=== PATIENT | male | born 1965 | race Caucasian/White ===

== ENCOUNTER 2017-07-10 15:09 | Emergency (ER) | payer OTHER ==
[~2017-07-10] VITALS: Ht 167.6 cm; Wt 68.0 kg
[~2017-07-10 15:09] MED LIST: BACT800T5 PO; IBUP-232 PO
[2017-07-10 15:28] VITALS: BP 110/74; PULSE 80; RESP 16; TEMP 98.4; O2SAT 97
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
[2017-07-10 20:00] VITALS: BP 116/76; PULSE 72; RESP 18; O2SAT 97
[2017-07-11] MEDS ORDERED: IBUPROFEN 800 MG TAB PO ONE (01:30)
[2017-07-11 03:42] VITALS: BP 106/72; PULSE 66; RESP 16; O2SAT 96
== END 2017-07-11 06:34 | disposition home or self-care (01) ==
LOC: NEPD 15:09
DX: F10.920 Alcohol use, unspecified with intoxication, uncomplicated (principal)
CPT/HCPCS: 99281

== ENCOUNTER 2017-10-29 06:56 | Emergency (ER) | payer SELFPAY ==
[~2017-10-29] VITALS: Ht 167.6 cm; Wt 68.0 kg
[2017-10-29 07:40] VITALS: BP 127/82; PULSE 92; RESP 18; TEMP 97.5; O2SAT 94
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
--- NOTE | 2017-10-29 08:43 | RADRPT ---
EXAM DATE/TIME: 10/29/2017 08:21 [facility] COMPARISON: No previous studies available for comparison. INDICATIONS : Fall, right knee pain. MEDICAL HISTORY : None. SURGICAL HISTORY : None. ENCOUNTER: Initial ACUITY: 1 day PAIN SCORE: 10/10 LOCATION: Right knee FINDINGS: Four view examination of the right knee demonstrates no evidence of fracture or dislocation. Bony mi neralization is under mineralized. Mild osteoarthritis. Large joint effusion. Slight depression later al tibial plateau. The articular surfaces are intact. The suprapatellar soft tissues have a normal configuration. CONCLUSION: 1. Slight depression lateral tibial plateau likely old fracture. 2. Large joint effusion without displaced fracture. 3. Osteopenia Vinny Tran MD on October 29, 2017 at 8:39 Board Certified Radiologist. This report was verified electronically.
[2017-10-29 09:00] VITALS: BP 132/77; PULSE 86; RESP 16; O2SAT 98
[2017-10-29 09:10] VITALS: RESP 16
[2017-10-29] MEDS ORDERED: TRAM50TA PO (09:38)
== END 2017-10-29 11:00 | disposition home or self-care (01) ==
LOC: PHED 06:56
DX: M25.461 Effusion, right knee (principal); S89.81XA Other specified injuries of right lower leg, initial encounter; F17.200 Nicotine dependence, unspecified, uncomplicated; W10.9XXA Fall (on) (from) unspecified stairs and steps, initial encounter
CPT/HCPCS: 73564; 99283; L1830

== ENCOUNTER 2017-11-08 19:44 | Emergency (ER) | payer OTHER ==
[2017-11-08 20:58] LABS: ALBUMIN 3.4 GM/DL (3.4-5.0); ANION GAP 10 MEQ/L (5-15); AST (GOT) 295 U/L (15-37); BICARBONATE 27.1 MEQ/L (21.0-32.0); BLOOD UREA NITROGEN 8 MG/DL (7-18); CALCIUM 8.8 MG/DL (8.5-10.1); CHLORIDE 97 MEQ/L (98-107); CREATININE 0.75 MG/DL (0.60-1.30); GLOMERULAR FILTRATION RATE 109 ML/MIN (>89); GLUCOSE,RANDOM 88 MG/DL (74-106); POTASSIUM 3.5 MEQ/L (3.5-5.1); SODIUM (NA) 134 MEQ/L (136-145)
[2017-11-08 20:59] LABS: ALT (GPT) 354 U/L (12-78)
[2017-11-08 21:01] LABS: ALKALINE PHOSPHATASE 125 U/L (45-117); TOTAL BILIRUBIN ADULT 0.5 MG/DL (0.2-1.0)
[2017-11-08 21:12] LABS: ALCOHOL 298 MG/DL (0-5)
[2017-11-08 21:21] LABS: AUTOMATED NEUTROPHIL # 3.7 TH/MM3 (1.8-7.7); BASOPHIL # 0.4 TH/MM3 (0-0.2); BASOPHIL % 4.8 % (0.0-2.0); EOSINOPHIL # 0.3 TH/MM3 (0-0.4); HEMATOCRIT 41.7 % (39.0-51.0); HEMO FLAGS AUTO DIFF; HEMOGLOBIN 14.1 GM/DL (13.0-17.0); LYMPH % 29.6 % (9.0-44.0); LYMPHOCYTE # 2.2 TH/MM3 (1.0-4.8); MEAN CELL VOLUME 103.5 FL (80.0-100.0); MEAN CORPUSCULAR HGB CONC 33.8 % (32.0-36.0); MEAN PLATELET VOLUME 7.9 FL (7.0-11.0); MONO % 12.7 % (0.0-8.0); NEUT % 48.9 % (16.0-70.0); PLATELET COUNT 247 TH/MM3 (150-450); RED BLOOD COUNT 4.03 MIL/MM3 (4.50-5.90); RED CELL DISTRIBUTION WIDTH 14.2 % (11.6-17.2); WHITE BLOOD COUNT 7.6 TH/MM3 (4.0-11.0)
[2017-11-08 21:53] LABS: SCAN/DIFF AUTO DIFF CONFIRMED
== END 2017-11-09 03:00 ==
LOC: NEDAMB 11-09 03:00
DX: F10.129 Alcohol abuse with intoxication, unspecified (principal); F17.200 Nicotine dependence, unspecified, uncomplicated
CPT/HCPCS: 80053; 80307; 85025; 99283

== ENCOUNTER 2018-02-05 13:45 | Inpatient (IN) | payer SELFPAY ==
[~2018-02-05 13:45] MED LIST changes: -BACT800T5 PO; -IBUP-232 PO; +TRAM50TA PO
[2018-02-05 13:50] VITALS: BP 157/94; PULSE 71; RESP 20
[2018-02-05] MEDS ORDERED: ONDANSETRON HCL 4 MG/2 ML VIAL IV PUSH ONE (14:00)
[2018-02-05] MEDS ORDERED: HYDROmorphone HCL PF 2 MG/ML VIAL IVS ONE ×2 (14:00→16:45)
[2018-02-05 14:05] VITALS: BP 157/94; PULSE 114; RESP 18; O2SAT 98
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
[2018-02-05 16:53] LABS: AUTOMATED NEUTROPHIL # 6.2 TH/MM3 (1.8-7.7); BASOPHIL % 0.4 % (0.0-2.0); EOSINOPHIL % 0.1 % (0.0-4.0); HEMATOCRIT 37.8 % (39.0-51.0); HEMOGLOBIN 13.3 GM/DL (13.0-17.0); LYMPH % 11.1 % (9.0-44.0); LYMPHOCYTE # 0.9 TH/MM3 (1.0-4.8); MEAN CELL VOLUME 104.1 FL (80.0-100.0); MEAN CORPUSCULAR HEMOGLOBIN 36.7 PG (27.0-34.0); MEAN CORPUSCULAR HGB CONC 35.3 % (32.0-36.0); MEAN PLATELET VOLUME 8.7 FL (7.0-11.0); MONO % 11.8 % (0.0-8.0); NEUT % 76.6 % (16.0-70.0); PLATELET COUNT 134 TH/MM3 (150-450); RED BLOOD COUNT 3.63 MIL/MM3 (4.50-5.90); RED CELL DISTRIBUTION WIDTH 13.9 % (11.6-17.2); WHITE BLOOD COUNT 8.1 TH/MM3 (4.0-11.0)
[2018-02-05 16:54] VITALS: RESP 18; O2SAT 95
[2018-02-05 16:55] VITALS: BP 118/75; PULSE 107; RESP 18; O2SAT 95
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
[2018-02-05 17:02] LABS: INTERNATIONAL NORMALIZED RATIO 1.2 RATIO; PROTHROMBIN TIME - PATIENT 12.4 SEC (9.8-11.6)
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
[2018-02-05 17:23] LABS: ALBUMIN 3.4 GM/DL (3.4-5.0); AST (GOT) 245 U/L (15-37); BLOOD UREA NITROGEN 7 MG/DL (7-18); CALCIUM 8.4 MG/DL (8.5-10.1); CHLORIDE 94 MEQ/L (98-107); GLOMERULAR FILTRATION RATE 118 ML/MIN (>89); GLUCOSE,RANDOM 103 MG/DL (74-106); SODIUM (NA) 131 MEQ/L (136-145)
[2018-02-05 17:25] LABS: ALT (GPT) 226 U/L (12-78)
[2018-02-05 17:27] LABS: ALKALINE PHOSPHATASE 123 U/L (45-117); TOTAL BILIRUBIN ADULT 1.7 MG/DL (0.2-1.0); TOTAL PROTEIN 7.9 GM/DL (6.4-8.2)
[2018-02-05] MEDS ORDERED: LORazepam 2 MG/ML VIAL IV PUSH PRN ×3 (17:45)
[2018-02-05] MEDS ORDERED: FLUMAZENIL 0.5 MG/5 ML VIAL IV PUSH PRN (17:45)
[2018-02-05] MEDS ORDERED: LORazepam 2 MG TAB PO PRN (17:45)
[2018-02-05] MEDS ORDERED: LORazepam 1 MG TAB PO PRN (17:45)
[2018-02-05] MEDS ORDERED: ONDANSETRON HCL 4 MG/2 ML VIAL IVP PRN (17:45)
[2018-02-05] MEDS ORDERED: ACETAMINOPHEN 325 MG TAB PO PRN (17:45)
[2018-02-05] MEDS ORDERED: NALOXONE HCL 0.4 MG/ML AMP IV PUSH PRN ×2 (17:45→18:00)
[2018-02-05] MEDS ORDERED: BISACODYL 10 MG SUPP RECTAL PRN (17:45)
[2018-02-05] MEDS ORDERED: ACETAMINOPHEN/HYDROcodone 325 MG/5 MG TAB PO PRN (18:00)
[2018-02-05] MEDS: ACETAMINOPHEN/HYDROcodone 325 MG/10 MG TAB PO PRN (20:13)
[2018-02-05 20:24] VITALS: BP 133/74; PULSE 93; RESP 18; TEMP 96.6; O2SAT 96
[2018-02-05 21:00] VITALS: BP 125/73; PULSE 112; RESP 19; TEMP 97.9; O2SAT 92
[2018-02-05] MEDS ORDERED: MULTIVITAMIN INJ 10 ML, THIAMINE INJ 100 MG, FOLIC ACID INJ 1 MG in SODIUM CHLORID 0.9%... IV ONE (21:00)
[2018-02-05] MEDS: MAGNESIUM HYDROXIDE SUSP 30 ML CUP PO PRN (22:01)
[2018-02-05] MEDS: MORPHINE SULFATE 4 MG/ML INJ IV PUSH PRN (22:01)
[2018-02-05] MEDS: SODIUM CHLORIDE 0.9% FLUSH 10 ML FLUSH IV FLUSH SCH (22:02)
[2018-02-05] MEDS: DOCUSATE SODIUM 50 MG/SENNA 8.6 MG TAB PO SCH (22:02)
[2018-02-05] MEDS ORDERED: POVIDONE IODINE 5% (ANTISEPSIS KIT) 4 APPLICATIONS EACH NARE PRN (22:30)
[2018-02-05] MEDS ORDERED: SODIUM CHLORID 0.9% 500 ML IV PRN (22:30)
[2018-02-05] MEDS ORDERED: LACTATED RINGER'S 1000 ML IV PRN (22:30)
[2018-02-05] MEDS: SODIUM CHLOR 0.9% 1000 ML INJ 1,000 ML IV SCH (22:30)
[2018-02-05] MEDS ORDERED: CHLORHEXIDINE GLUCONATE 2 % 1 PACK (2 CLOTHS) TOPICAL PRN (22:30)
[2018-02-06 00:15] VITALS: BP 135/76; PULSE 101; RESP 18; TEMP 99.1; O2SAT 97
[2018-02-06] MEDS: ACETAMINOPHEN/HYDROcodone 325 MG/10 MG TAB PO PRN ×3 (00:24→14:10)
[2018-02-06] MEDS: MORPHINE SULFATE 4 MG/ML INJ IV PUSH PRN ×3 (01:30→19:11)
[2018-02-06 01:54] LABS: AUTOMATED NEUTROPHIL # 5.7 TH/MM3 (1.8-7.7); BASOPHIL # 0.1 TH/MM3 (0-0.2); BASOPHIL % 1.4 % (0.0-2.0); EOSINOPHIL # 0.1 TH/MM3 (0-0.4); EOSINOPHIL % 0.8 % (0.0-4.0); HEMATOCRIT 33.8 % (39.0-51.0); LYMPH % 13.2 % (9.0-44.0); MEAN CELL VOLUME 103.9 FL (80.0-100.0); MEAN CORPUSCULAR HEMOGLOBIN 36.9 PG (27.0-34.0); MEAN CORPUSCULAR HGB CONC 35.5 % (32.0-36.0); MEAN PLATELET VOLUME 8.9 FL (7.0-11.0); MONO % 11.5 % (0.0-8.0); MONOCYTE # 0.9 TH/MM3 (0-0.9); NEUT % 73.1 % (16.0-70.0); PLATELET COUNT 114 TH/MM3 (150-450); RED BLOOD COUNT 3.25 MIL/MM3 (4.50-5.90); RED CELL DISTRIBUTION WIDTH 14.5 % (11.6-17.2); WHITE BLOOD COUNT 7.8 TH/MM3 (4.0-11.0)
[2018-02-06 02:10] LABS: ALBUMIN 3.3 GM/DL (3.4-5.0); ALT (GPT) 191 U/L (12-78); AST (GOT) 183 U/L (15-37); BICARBONATE 33.1 MEQ/L (21.0-32.0); BLOOD UREA NITROGEN 11 MG/DL (7-18); CALCIUM 8.4 MG/DL (8.5-10.1); CHLORIDE 93 MEQ/L (98-107); GLUCOSE,RANDOM 99 MG/DL (74-106); SODIUM (NA) 132 MEQ/L (136-145)
[2018-02-06 02:13] LABS: ALKALINE PHOSPHATASE 99 U/L (45-117); CREATININE 0.78 MG/DL (0.60-1.30); GLOMERULAR FILTRATION RATE 104 ML/MIN (>89); TOTAL BILIRUBIN ADULT 2.4 MG/DL (0.2-1.0); TOTAL PROTEIN 7.2 GM/DL (6.4-8.2)
[2018-02-06 04:30] VITALS: BP 115/68; PULSE 106; RESP 18; TEMP 98.5; O2SAT 95
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
[2018-02-06] MEDS ORDERED: WALKER/ADULT/FO1 MIS (06:43)
[2018-02-06] MEDS ORDERED: XARE10TA PO (06:43)
[2018-02-06] MEDS ORDERED: HYDR-3583 PO (06:43)
[2018-02-06 08:00] VITALS: BP 120/69; PULSE 93; RESP 16; TEMP 98.4; O2SAT 95
[2018-02-06] MEDS ORDERED: VANCOMYCIN HCL 1000 MG VIAL ONE (08:00)
[2018-02-06] MEDS ORDERED: ceFAZolin INJ 1,000 MG VIAL ONE (08:00)
[2018-02-06] MEDS ORDERED: GENTAMICIN SULFATE 80 MG/2 ML VIAL ONE (08:00)
[2018-02-06] MEDS ORDERED: SODIUM CHLOR 0.9% 250 ML INJ 250 ML ONE (08:01)
[2018-02-06] MEDS ORDERED: BUPIVACAINE/EPINEPHRINE 0.25% 50 ML VIAL ONE (08:01)
[2018-02-06] MEDS: SODIUM CHLOR 0.9% 1000 ML INJ 1,000 ML IV SCH ×2 (08:36→17:42)
[2018-02-06] MEDS: SODIUM CHLORIDE 0.9% FLUSH 10 ML FLUSH IV FLUSH SCH ×2 (09:00→21:58)
[2018-02-06] MEDS: DOCUSATE SODIUM 50 MG/SENNA 8.6 MG TAB PO SCH ×2 (09:00→21:58)
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
--- NOTE | 2018-02-06 09:42 | PD.OP ---
cc: Lauri Mensah MD Operative Report Date of Surgery: Feb 06, 2018 Preoperative Diagnosis: Left hip intertrochanteric fracture Postoperative Diagnosis: Procedure: Left hip reduction and intramedullary nail fixation Anesthesia: General Surgeon: Lauri Mensah Grants Administrator(s): UMM Hinojosa PA-C The surgical procedure was assisted by my physician psychiatric assistant. My P.A. presence was necessary throughout this case for the manipulation and positioning of the surgical extremity. My P.A. was assisting me throughout the duration of this procedure. The skill set of a physician psychiatric assistant was medically necessary to complete this procedure. During the surgical case the surgical dressing maker was working at the back table and the physician psychiatric assistant was directly assisting me. Operation and Findings: Implants used: [11]mm 130 Biomet short troch nail Plan of activity: Weight-bear as tolerated Patient was seen and evaluated preoperatively. The patient has significant hip pain from intertrochanteric hip fracture. The risk and benefits of surgery were discussed in depth with the patient to include bleeding infection nonunion malunion and need for hip replacement painful hardware as well as medical competitions including but not stroke heart attack and . Informed consent was obtained. Operative site was marked. Patient was brought to the operating room and placed on fracture table. IV sedation was administered by anesthesiologist. Timeout procedure was performed. Hip and leg were prepped with alcohol followed by DuraPrep and draped in the usual sterile fashion. IV antibiotics were given prior to incision. Procedure began with reduction of fracture. Traction was applied. The leg was manipulated to achieve reduction. Excellent reduction was achieved. Fluoroscopy was used to confirm reduction. A three inch incision was made proximal to the trochanter. Subcutaneous tissue was dissected bluntly. Guidepin was placed at the tip of the trochanter and advanced into the femoral canal. Fluoroscopy confirmed appropriate guidepin placement. A opening reamer was placed over the guidepin. The nail was attached to the insertion handle. Nail was now placed through the tip of the trochanter into the femoral canal. Fluoroscopy confirmed appropriate nail placement. A second incision was made over the lateral thigh. Cannulas were placed through the insertion handle down to the femur. Guidepin was now placed through the femoral nail into the center of the femoral head. Fluoroscopy confirmed appropriate guidepin placement. Screw length was measured. Cannulated drill was placed over the guidepin. Appropriate length lag screw was now placed. Traction was released and compression was applied. The set screw was now tightened in dynamic mode. Using the insertion handle as a guide a distal interlocking screw was drilled and placed. Final fluoroscopy revealed well aligned fracture with well-placed hardware. Incision was closed with 3-0 Vicryl and sherron. Sterile dressings were applied. Patient was awakened and transferred to recovery room. Lauri Mensah MD Feb 06, 2018 09:42
[2018-02-06] MEDS ORDERED: ERGOCALCIFEROL (VIT D2) 50,000 UNIT CAP PO ONE (09:45)
[2018-02-06] MEDS ORDERED: DO NOT ADM ANY ANTICOAGULANT DRUGS PRN (10:11)
[2018-02-06] MEDS ORDERED: *MEPERIDINE 25 MG INJ VIAL PERIprocedural Use ONLY ONE (10:19)
[2018-02-06] MEDS ORDERED: MIDAZOLAM HCL 2 MG/2 ML VIAL ONE (10:24)
[2018-02-06] MEDS ORDERED: *morphine SULFATE 8 MG/ML PERIprocedure ONLY ONE (10:50)
[2018-02-06] MEDS ORDERED: *diphenhydrAMINE HCL 50 MG/ML VIAL PERIprocedural Use ONLY ONE (10:58)
[2018-02-06] MEDS ORDERED: diphenhydrAMINE HCL 25 MG CAP PO PRN (11:30)
--- NOTE | 2018-02-06 11:52 | RADRPT ---
EXAM DATE/TIME: 02/06/2018 09:35 [facility] COMPARISON: No previous studies available for comparison. INDICATIONS : Left troch nail. MEDICAL HISTORY : Gastroparesis. Pneumonia. Liver disease. ETOH use. SURGICAL HISTORY : Appendectomy.Inguinal hernia repair. Cervical spine surgery with plate. ENCOUNTER: Subsequent ACUITY: 2 days PAIN SCORE: Non-responsive. LOCATION: Left Hip. FINDINGS: Intertrochanteric nail in good position. CONCLUSION: Anatomic alignment. Jeremy Wells MD FACR on February 06, 2018 at 11:49 Board Certified Radiologist. This report was verified electronically.
[2018-02-06 12:00] VITALS: BP 114/72; PULSE 96; RESP 18; TEMP 98.2; O2SAT 97
[2018-02-06] MEDS ORDERED: ROCURONIUM INJ 50 MG/5 ML SYRINGE IV PUSH ONE (12:00)
[2018-02-06] MEDS ORDERED: PROPOFOL 200 MG/20 ML AMP IV ONE (12:00)
[2018-02-06] MEDS ORDERED: DEXAMETHASONE SOD PHOS 4 MG/ML VIAL IV ONE (12:00)
[2018-02-06] MEDS ORDERED: ONDANSETRON HCL 4 MG/2 ML VIAL IV ONE (12:00)
[2018-02-06] MEDS ORDERED: GLYCOPYRROLATE 1 MG/5 ML SYRINGE IV PUSH ONE (12:00)
[2018-02-06] MEDS ORDERED: LIDOCAINE HCL 1% PF 5 ML SYRINGE OTHER ONE (12:00)
[2018-02-06] MEDS ORDERED: NEOSTIGMINE 5 MG/5 ML SYRINGE IV PUSH ONE (12:00)
[2018-02-06] MEDS: LORazepam 2 MG/ML VIAL IV PUSH PRN ×2 (14:10→19:12)
[2018-02-06] MEDS: CALCIUM/VITAMIN D 250 MG/125 U TAB PO SCH ×2 (14:10→18:24)
--- NOTE | 2018-02-06 15:21 | OTSOAPIP ---
TIME SESSION COMPLETED: 1300 TREATMENT TIME: 0 MINS. CHART REVIEWED. ATTEMPTED TO SEE FOR OT ASSESSMENT, HOWEVER PATIENT OFF FLOOR FOR SURGERY. WILL FOLLOW NEXT DAY. Therapist: MANUEL UGARTE OT/Azael Signature on file
--- NOTE | 2018-02-06 15:33 | RADRPT ---
EXAM DATE/TIME: 02/06/2018 13:13 [facility] COMPARISON: No previous studies available for comparison. INDICATIONS : Elevated bilirubin. MEDICAL HISTORY : Hypertension. Gastroesophageal reflux disease. Gastroparesis. ETOH. SURGICAL HISTORY : Appendectomy. Cervical fusion. Left inguinal hernia repair. ENCOUNTER: Initial ACUITY: 1 day PAIN SCORE: 0/10 LOCATION: Right upper quadrant MEASUREMENTS: LIVER: 15.3 cm length COMMON DUCT: 2 mm RIGHT KIDNEY: 10.1 x 4.8 x 5.2 cm FINDINGS: LIVER: Mildly increased echogenicity which may reflect steatosis. No focal mass or biliary ductal dilatation . COMMON DUCT: No intraluminal mass or stone visualized. GALLBLADDER: Contains no stones, demonstrates no wall thickening or pericholecystic fluid. PANCREAS: Poorly visualized RIGHT KIDNEY: No evidence of hydronephrosis, stone, or mass. CONCLUSION: Echogenic hepatic parenchyma. No focal abnormalities Kuldeep Thomas MD on February 06, 2018 at 15:03 Board Certified Radiologist. This report was verified electronically.
[2018-02-06 16:00] VITALS: BP 117/68; PULSE 100; RESP 17; TEMP 97.9; O2SAT 93
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
[2018-02-06] MEDS ORDERED: oxyCODONE/ACETAMINOPHEN 5 MG/325 MG TAB PO PRN (18:15)
[2018-02-06] MEDS: REMOVE OLD PATCH T-DERMAL SCH (18:24)
[2018-02-06] MEDS: NICOTINE 14 MG/24 HR PATCH T-DERMAL SCH (18:24)
[2018-02-06 20:17] VITALS: BP 109/81; PULSE 107; RESP 16; TEMP 98.9; O2SAT 93
[2018-02-06] MEDS: MULTIVITAMIN INJ 10 ML, THIAMINE INJ 100 MG, FOLIC ACID INJ 1 MG in SODIUM CHLORID 0.9%... IV SCH (22:03)
[2018-02-07] VITALS (12 sets, daily range): BP systolic 102–166; BP diastolic 55–91; PULSE 80–107; RESP 16–18; TEMP 98.1–99; O2SAT 93–98
[2018-02-07] MEDS: MORPHINE SULFATE 4 MG/ML INJ IV PUSH PRN ×5 (04:12→22:58)
[2018-02-07 07:37] LABS: BASOPHIL % 0.4 % (0.0-2.0); EOSINOPHIL % 0.4 % (0.0-4.0); HEMATOCRIT 20.5 % (39.0-51.0); LYMPH % 16.5 % (9.0-44.0); LYMPHOCYTE # 1.4 TH/MM3 (1.0-4.8); MEAN CELL VOLUME 107.9 FL (80.0-100.0); MEAN CORPUSCULAR HEMOGLOBIN 37.8 PG (27.0-34.0); MEAN PLATELET VOLUME 9.2 FL (7.0-11.0); MONO % 13.2 % (0.0-8.0); MONOCYTE # 1.1 TH/MM3 (0-0.9); NEUT % 69.5 % (16.0-70.0); PLATELET COUNT 95 TH/MM3 (150-450); RED CELL DISTRIBUTION WIDTH 14.5 % (11.6-17.2); WHITE BLOOD COUNT 8.6 TH/MM3 (4.0-11.0)
[2018-02-07] MEDS: SODIUM CHLORIDE 0.9% FLUSH 10 ML FLUSH IV FLUSH PRN ×2 (07:44→22:58)
[2018-02-07 08:16] LABS: ALBUMIN 2.6 GM/DL (3.4-5.0); ALKALINE PHOSPHATASE 78 U/L (45-117); ALT (GPT) 102 U/L (12-78); AST (GOT) 72 U/L (15-37); BICARBONATE 29.6 MEQ/L (21.0-32.0); BLOOD UREA NITROGEN 12 MG/DL (7-18); CHLORIDE 100 MEQ/L (98-107); CREATININE 0.69 MG/DL (0.60-1.30); GLOMERULAR FILTRATION RATE 119 ML/MIN (>89); GLUCOSE,RANDOM 118 MG/DL (74-106); SODIUM (NA) 137 MEQ/L (136-145); TOTAL BILIRUBIN ADULT 1.3 MG/DL (0.2-1.0); TOTAL PROTEIN 5.8 GM/DL (6.4-8.2)
[2018-02-07 08:22] LABS: HEMOGLOBIN 7.2 GM/DL (13.0-17.0)
[2018-02-07] MEDS ORDERED: SODIUM CHLOR 0.9% 250 ML INJ 250 ML IV ONE (08:45)
[2018-02-07] MEDS ORDERED: diphenhydrAMINE HCL 25 MG CAP PO PRN (08:45)
[2018-02-07] MEDS ORDERED: ACETAMINOPHEN 325 MG TAB PO PRN (08:45)
--- NOTE | 2018-02-07 09:14 | EKG ---
Date Performed: 02/05/2018 Time Performed: 17:50:02 PTAGE: 52 years EKG: Sinus rhythm RIGHT BUNDLE BRANCH BLOCK ABNORMAL ECG PREVIOUS TRACING : 05/01/2015 04.13 DOCTOR: Ashley Garcia Interpretating Date/Time 02/07/2018 09:10:34
[2018-02-07] MEDS: LACTULOSE SYRUP 20 GM/30 ML CUP PO PRN ×2 (10:15→20:12)
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
[2018-02-07] MEDS: DOCUSATE SODIUM 50 MG/SENNA 8.6 MG TAB PO SCH ×2 (10:16→20:12)
[2018-02-07] MEDS: SODIUM CHLORIDE 0.9% FLUSH 10 ML FLUSH IV FLUSH SCH ×2 (10:16→20:12)
[2018-02-07] MEDS: CALCIUM/VITAMIN D 250 MG/125 U TAB PO SCH ×3 (10:16→16:54)
[2018-02-07] MEDS: CHOLECALCIFEROL (VIT D3) 5000 UNIT CAP PO SCH (10:16)
[2018-02-07] MEDS: ENOXAPARIN SODIUM 30 MG/0.3 ML SYRINGE SQ SCH (10:17)
[2018-02-07] MEDS: REMOVE OLD PATCH T-DERMAL SCH (10:17)
[2018-02-07] MEDS: NICOTINE 14 MG/24 HR PATCH T-DERMAL SCH (10:17)
[2018-02-07] MEDS: oxyCODONE/ACETAMINOPHEN 10 MG/325 MG TAB PO PRN ×3 (10:37→23:27)
[2018-02-07] MEDS: SODIUM CHLOR 0.9% 1000 ML INJ 1,000 ML IV SCH ×2 (11:54→20:09)
[2018-02-07] MEDS: MULTIVITAMIN INJ 10 ML, THIAMINE INJ 100 MG, FOLIC ACID INJ 1 MG in SODIUM CHLORID 0.9%... IV SCH (20:09)
--- NOTE | 2018-02-07 20:11 | PD.ORT.PN ---
Subjective Subjective Remarks No issues. No chest pain or shortness of breath Objective Vitals Vital Signs Date Time Temp Pulse Resp B/P (MAP) Pulse Ox O2 Delivery O2 Flow Rate FiO2 02/07/18 17:45 98.2 96 16 120/70 94 02/07/18 14:55 98.4 98 18 138/78 95 02/07/18 14:34 98.2 80 16 128/63 97 02/07/18 12:46 98.2 91 17 112/55 (74) 97 02/07/18 08:00 98.1 91 18 113/64 (80) 96 02/07/18 04:15 98.8 94 17 116/61 (79) 98 02/07/18 00:15 99.0 90 16 102/60 (74) 93 02/06/18 20:17 98.9 107 16 109/81 (90) 93 I/O 02/06/18 02/06/18 02/06/18 02/07/18 02/07/18 02/07/18 07:00 15:00 23:00 07:00 15:00 23:00 Intake Total 1061.2 ml 1100 ml 720 ml 105 ml 1755 ml Output Total 400 ml 50 ml 800 ml Balance 661.2 ml 1050 ml 720 ml 105 ml 955 ml Intake Oral 0 ml 720 ml 1350 ml IV Total 1061.2 ml 100 ml 50 ml Packed Cells 350 ml Blood Product IV Normal Saline Flush 5 ml 5 ml Other 1100 ml Output Urine Total 400 ml 800 ml Estimated Blood Loss 50 ml # Voids 3 # Bowel Movements 0 0 0 Result Diagram: 02/07/18 0603 02/07/18 0603 Imaging Last 24 hours Impressions Chest X-Ray 02/05/18 1609 Signed Impressions: Service Date/Time: January 16:14 - CONCLUSION: 1. Chronic osseous changes with widening of the right a.c. joint and an old healed fracture deformity of the posterolateral aspect of the right seventh rib. No acute osseous injury. 2. Lungs are clear Pepito Khoury MD Pelvis X-Ray 02/05/18 1354 Signed Impressions: Service Date/Time: January 14:32 - CONCLUSION: Intertrochanteric fracture of the left hip. Shaun Copeland MD Femur X-Ray 02/05/18 3481 Signed Impressions: Service Date/Time: January 14:32 - CONCLUSION: Intertrochanteric fracture left hip. Otherwise intact left femur. Advanced arthropathy of the medial joint compartment of the knee. Shaun Copeland MD Objective Remarks LLE: nvi, CDI dressing, SILT distally Assessment & Plan Assessment and Plan 1) Left Intertroch Hip Fx s/p IMN - POD 1 doing well. no c/o -daily dressing changes POD 2 -CM for HHC vs Rehab -WBAT -lovenox -scripts on chart -f/u with [facility] or [facility] in 2 weeks Donnell Servin Jr., MD Feb 07, 2018 20:11
[2018-02-07] MEDS: SENNOSIDES 8.6 MG TAB PO PRN (20:12)
[2018-02-07] MEDS: MAGNESIUM HYDROXIDE SUSP 30 ML CUP PO PRN (20:12)
[2018-02-08] MEDS: MORPHINE SULFATE 4 MG/ML INJ IV PUSH PRN ×3 (02:18→20:35)
[2018-02-08] MEDS: SODIUM CHLORIDE 0.9% FLUSH 10 ML FLUSH IV FLUSH PRN (02:18)
[2018-02-08 02:26] VITALS: BP 141/82; PULSE 92; RESP 20; TEMP 99.1; O2SAT 96
[2018-02-08 03:45] LABS: BILIRUBIN, URINE NEG (NEG); BLOOD, URINE NEG (NEG); GLUCOSE,URINE NEG (NEG); KETONE, URINE NEG (NEG); MUCUS URINE FEW /lpf (OCC); NITRITE,URINE NEG (NEG); PH, URINE 7.5 (5.0-8.5); SQUAMOUS EPITHELIAL CELL URINE 4 /hpf (0-5); URINE COLOR YELLOW (YELLW/STRAW); URINE LEUKOCYTE ESTERASE TRACE (NEG)
[2018-02-08 04:20] LABS: AUTOMATED NEUTROPHIL # 3.4 TH/MM3 (1.8-7.7); BASOPHIL % 0.7 % (0.0-2.0); EOSINOPHIL # 0.1 TH/MM3 (0-0.4); EOSINOPHIL % 1.1 % (0.0-4.0); HEMATOCRIT 30.8 % (39.0-51.0); HEMOGLOBIN 10.7 GM/DL (13.0-17.0); LYMPH % 22.1 % (9.0-44.0); LYMPHOCYTE # 1.2 TH/MM3 (1.0-4.8); MEAN CORPUSCULAR HEMOGLOBIN 34.2 PG (27.0-34.0); MEAN CORPUSCULAR HGB CONC 34.9 % (32.0-36.0); MEAN PLATELET VOLUME 8.4 FL (7.0-11.0); MONO % 11.8 % (0.0-8.0); MONOCYTE # 0.6 TH/MM3 (0-0.9); NEUT % 64.3 % (16.0-70.0); PLATELET COUNT 107 TH/MM3 (150-450); RED BLOOD COUNT 3.14 MIL/MM3 (4.50-5.90); RED CELL DISTRIBUTION WIDTH 19.4 % (11.6-17.2); WHITE BLOOD COUNT 5.2 TH/MM3 (4.0-11.0)
[2018-02-08 04:40] LABS: ALBUMIN 2.7 GM/DL (3.4-5.0); ALT (GPT) 99 U/L (12-78); AST (GOT) 88 U/L (15-37); BLOOD UREA NITROGEN 6 MG/DL (7-18); CALCIUM 8.1 MG/DL (8.5-10.1); CHLORIDE 99 MEQ/L (98-107); CREATININE 0.65 MG/DL (0.60-1.30); GLOMERULAR FILTRATION RATE 128 ML/MIN (>89); GLUCOSE,RANDOM 98 MG/DL (74-106); SODIUM (NA) 138 MEQ/L (136-145)
[2018-02-08 04:41] LABS: ALKALINE PHOSPHATASE 99 U/L (45-117); TOTAL BILIRUBIN ADULT 1.8 MG/DL (0.2-1.0); TOTAL PROTEIN 6.4 GM/DL (6.4-8.2)
[2018-02-08] MEDS: SODIUM CHLOR 0.9% 1000 ML INJ 1,000 ML IV SCH ×2 (06:06→15:12)
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
[2018-02-08] MEDS: REMOVE OLD PATCH T-DERMAL SCH (07:53)
[2018-02-08] MEDS: NICOTINE 14 MG/24 HR PATCH T-DERMAL SCH (07:53)
[2018-02-08] MEDS: CALCIUM/VITAMIN D 250 MG/125 U TAB PO SCH ×3 (07:54→17:21)
[2018-02-08] MEDS: DOCUSATE SODIUM 50 MG/SENNA 8.6 MG TAB PO SCH ×2 (07:54→20:34)
[2018-02-08] MEDS: CHOLECALCIFEROL (VIT D3) 5000 UNIT CAP PO SCH (07:54)
[2018-02-08] MEDS: oxyCODONE/ACETAMINOPHEN 10 MG/325 MG TAB PO PRN ×3 (07:55→23:56)
[2018-02-08] MEDS: SODIUM CHLORIDE 0.9% FLUSH 10 ML FLUSH IV FLUSH SCH ×2 (07:55→20:34)
[2018-02-08 08:00] VITALS: BP 144/91; PULSE 99; RESP 18; TEMP 97.9; O2SAT 95
[2018-02-08 12:01] LABS: AUTOMATED NEUTROPHIL # 3.5 TH/MM3 (1.8-7.7); BASOPHIL % 0.6 % (0.0-2.0); EOSINOPHIL # 0.1 TH/MM3 (0-0.4); EOSINOPHIL % 1.2 % (0.0-4.0); HEMATOCRIT 30.8 % (39.0-51.0); HEMOGLOBIN 11.2 GM/DL (13.0-17.0); LYMPH % 18.2 % (9.0-44.0); LYMPHOCYTE # 0.9 TH/MM3 (1.0-4.8); MEAN CORPUSCULAR HEMOGLOBIN 35.4 PG (27.0-34.0); MEAN PLATELET VOLUME 8.1 FL (7.0-11.0); MONO % 11.6 % (0.0-8.0); MONOCYTE # 0.6 TH/MM3 (0-0.9); NEUT % 68.4 % (16.0-70.0); PLATELET COUNT 125 TH/MM3 (150-450); RED BLOOD COUNT 3.15 MIL/MM3 (4.50-5.90); RED CELL DISTRIBUTION WIDTH 19.1 % (11.6-17.2); WHITE BLOOD COUNT 5.1 TH/MM3 (4.0-11.0)
[2018-02-08 12:03] LABS: MEAN CORPUSCULAR HGB CONC 36.2 % (32.0-36.0)
--- NOTE | 2018-02-08 12:22 | RADRPT ---
EXAM DATE/TIME: 02/08/2018 11:59 [facility] COMPARISON: No previous studies available for comparison. INDICATIONS : Left leg pain post procedure. MEDICAL HISTORY : Hypertension. Gastroesophageal reflux disease. Neck pain. Gastroparesis. Inguinal hernia. Liver dis ease. Depression. Anxiety. SURGICAL HISTORY : Appendectomy. Cervical fusion. Left inguinal hernia repair. ENCOUNTER: Initial ACUITY: 2 days PAIN SCORE: 6/10 LOCATION: Left groin. AREA EVALUATED: Left groin. FINDINGS: A targeted groin ultrasound was performed and demonstrated that the common femoral superficial femora l arteries and veins are intact. There is no focal hematoma or pseudoaneurysm. CONCLUSION: Negative study with no evidence of hematoma or pseudoaneurysm. Jl Nicholson MD on February 08, 2018 at 12:19 Board Certified Radiologist. This report was verified electronically.
[2018-02-08 12:27] VITALS: BP 157/88; PULSE 92; RESP 17; TEMP 98.1; O2SAT 96
--- NOTE | 2018-02-08 13:59 | PD.ORT.PN ---
Subjective Subjective Remarks No issues. No chest pain or shortness of breath Objective Vitals Vital Signs Date Time Temp Pulse Resp B/P (MAP) Pulse Ox O2 Delivery O2 Flow Rate FiO2 02/08/18 12:27 98.1 92 17 157/88 (111) 96 02/08/18 08:00 97.9 99 18 144/91 (108) 95 02/08/18 02:26 99.1 92 20 141/82 96 02/07/18 23:30 98.8 94 18 132/79 (96) 97 02/07/18 23:22 98.8 94 18 132/79 97 02/07/18 23:05 98.8 107 18 166/91 97 02/07/18 22:55 98.8 107 18 166/91 (116) 97 02/07/18 20:00 98.6 102 18 152/74 (100) 97 02/07/18 17:45 98.2 96 16 120/70 94 02/07/18 14:55 98.4 98 18 138/78 95 02/07/18 14:34 98.2 80 16 128/63 97 I/O 02/07/18 02/07/18 02/07/18 02/08/18 02/08/18 02/08/18 07:00 15:00 23:00 07:00 15:00 23:00 Intake Total 720 ml 105 ml 1755 ml 660 ml Output Total 800 ml 600 ml Balance 720 ml 105 ml 955 ml 60 ml Intake Oral 720 ml 1350 ml IV Total 100 ml 50 ml Packed Cells 350 ml 400 ml Blood Product IV Normal Saline Flush 5 ml 5 ml 260 ml Output Urine Total 800 ml 600 ml # Voids 3 1 # Bowel Movements 0 0 1 Result Diagram: 02/08/18 1140 02/08/18 0349 Imaging Last 24 hours Impressions Chest X-Ray 02/05/18 1609 Signed Impressions: Service Date/Time: January 16:14 - CONCLUSION: 1. Chronic osseous changes with widening of the right a.c. joint and an old healed fracture deformity of the posterolateral aspect of the right seventh rib. No acute osseous injury. 2. Lungs are clear Pepito Khoury MD Pelvis X-Ray 02/05/18 1354 Signed Impressions: Service Date/Time: January 14:32 - CONCLUSION: Intertrochanteric fracture of the left hip. Shaun Copeland MD Femur X-Ray 02/05/18 1354 Signed Impressions: Service Date/Time: January 14:32 - CONCLUSION: Intertrochanteric fracture left hip. Otherwise intact left femur. Advanced arthropathy of the medial joint compartment of the knee. Shaun Copeland MD Objective Remarks LLE: nvi, CDI dressing, SILT distally Assessment & Plan Assessment and Plan 1) Left Intertroch Hip Fx s/p IMN - POD 2 doing well. no c/o -daily dressing changes -CM for HHC vs Rehab -WBAT -lovenox -scripts on chart -f/u with [facility] or [facility] in 2 weeks Donnell Servin Jr., MD Feb 08, 2018 13:59
[2018-02-08 16:31] VITALS: BP 172/90; PULSE 99; RESP 18; TEMP 98.5; O2SAT 97
[2018-02-08 20:00] VITALS: BP 152/84; PULSE 107; RESP 17; TEMP 97.2; O2SAT 97
[2018-02-08] MEDS: MULTIVITAMIN INJ 10 ML, THIAMINE INJ 100 MG, FOLIC ACID INJ 1 MG in SODIUM CHLORID 0.9%... IV SCH (20:36)
[2018-02-08 23:15] VITALS: BP 151/83; PULSE 70; RESP 16; TEMP 98.8; O2SAT 99
[2018-02-09] MEDS: SODIUM CHLOR 0.9% 1000 ML INJ 1,000 ML IV SCH ×3 (00:18→18:30)
[2018-02-09] MEDS: SODIUM CHLORIDE 0.9% FLUSH 10 ML FLUSH IV FLUSH PRN (02:31)
[2018-02-09] MEDS: MORPHINE SULFATE 4 MG/ML INJ IV PUSH PRN (02:31)
[2018-02-09 05:34] LABS: AUTOMATED NEUTROPHIL # 2.6 TH/MM3 (1.8-7.7); EOSINOPHIL # 0.1 TH/MM3 (0-0.4); EOSINOPHIL % 1.8 % (0.0-4.0); HEMATOCRIT 31.5 % (39.0-51.0); HEMOGLOBIN 10.9 GM/DL (13.0-17.0); LYMPH % 25.1 % (9.0-44.0); LYMPHOCYTE # 1.1 TH/MM3 (1.0-4.8); MEAN CELL VOLUME 99.3 FL (80.0-100.0); MEAN CORPUSCULAR HEMOGLOBIN 34.5 PG (27.0-34.0); MEAN CORPUSCULAR HGB CONC 34.8 % (32.0-36.0); MEAN PLATELET VOLUME 7.9 FL (7.0-11.0); MONO % 12.9 % (0.0-8.0); MONOCYTE # 0.6 TH/MM3 (0-0.9); NEUT % 59.2 % (16.0-70.0); PLATELET COUNT 152 TH/MM3 (150-450); RED BLOOD COUNT 3.17 MIL/MM3 (4.50-5.90); RED CELL DISTRIBUTION WIDTH 18.5 % (11.6-17.2); WHITE BLOOD COUNT 4.3 TH/MM3 (4.0-11.0)
[2018-02-09] MEDS: oxyCODONE/ACETAMINOPHEN 10 MG/325 MG TAB PO PRN ×2 (05:43→19:47)
[2018-02-09 06:04] LABS: ALBUMIN 2.8 GM/DL (3.4-5.0); ALKALINE PHOSPHATASE 112 U/L (45-117); ALT (GPT) 97 U/L (12-78); AST (GOT) 89 U/L (15-37); BICARBONATE 31.2 MEQ/L (21.0-32.0); BLOOD UREA NITROGEN 7 MG/DL (7-18); CALCIUM 8.7 MG/DL (8.5-10.1); CHLORIDE 94 MEQ/L (98-107); CREATININE 0.66 MG/DL (0.60-1.30); GLOMERULAR FILTRATION RATE 126 ML/MIN (>89); GLUCOSE,RANDOM 102 MG/DL (74-106); SODIUM (NA) 133 MEQ/L (136-145); TOTAL PROTEIN 6.8 GM/DL (6.4-8.2)
[2018-02-09] MEDS ORDERED: POTASSIUM CHLORIDE 25 MEQ EFFERVESCENT TAB PO ONE (07:00)
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
[2018-02-09 08:21] VITALS: BP 144/80; PULSE 94; RESP 17; TEMP 97.6; O2SAT 98
[2018-02-09] MEDS: SODIUM CHLORIDE 0.9% FLUSH 10 ML FLUSH IV FLUSH SCH ×2 (09:00→21:34)
[2018-02-09] MEDS ORDERED: oxyCODONE/ACETAMINOPHEN 5 MG/325 MG TAB PO PRN (09:45)
[2018-02-09] MEDS: CALCIUM/VITAMIN D 250 MG/125 U TAB PO SCH ×3 (10:09→17:58)
[2018-02-09] MEDS: DOCUSATE SODIUM 50 MG/SENNA 8.6 MG TAB PO SCH ×2 (10:10→21:34)
[2018-02-09] MEDS: ENOXAPARIN SODIUM 30 MG/0.3 ML SYRINGE SQ SCH (10:10)
[2018-02-09] MEDS: CHOLECALCIFEROL (VIT D3) 5000 UNIT CAP PO SCH (10:10)
[2018-02-09] MEDS: NICOTINE 14 MG/24 HR PATCH T-DERMAL SCH (10:12)
[2018-02-09 12:00] VITALS: BP 168/79; PULSE 83; RESP 17; TEMP 97.6; O2SAT 99
[2018-02-09 16:00] VITALS: BP 129/73; PULSE 82; RESP 17; TEMP 99.1; O2SAT 100
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
[2018-02-09 20:20] VITALS: BP 146/84; PULSE 92; RESP 17; TEMP 98.2; O2SAT 98
[2018-02-09] MEDS: REMOVE OLD PATCH T-DERMAL SCH (21:00)
[2018-02-09] MEDS: MULTIVITAMIN INJ 10 ML, THIAMINE INJ 100 MG, FOLIC ACID INJ 1 MG in SODIUM CHLORID 0.9%... IV SCH (21:34)
[2018-02-10 00:05] VITALS: BP 126/74; PULSE 84; RESP 18; TEMP 98.6; O2SAT 96
[2018-02-10] MEDS: oxyCODONE/ACETAMINOPHEN 10 MG/325 MG TAB PO PRN ×6 (00:21→23:36)
[2018-02-10 03:45] LABS: AUTOMATED NEUTROPHIL # 2.6 TH/MM3 (1.8-7.7); BASOPHIL # 0.1 TH/MM3 (0-0.2); BASOPHIL % 1.2 % (0.0-2.0); EOSINOPHIL # 0.1 TH/MM3 (0-0.4); EOSINOPHIL % 1.9 % (0.0-4.0); HEMATOCRIT 30.1 % (39.0-51.0); HEMOGLOBIN 10.5 GM/DL (13.0-17.0); LYMPH % 23.3 % (9.0-44.0); MEAN CELL VOLUME 99.6 FL (80.0-100.0); MEAN CORPUSCULAR HEMOGLOBIN 34.7 PG (27.0-34.0); MEAN CORPUSCULAR HGB CONC 34.8 % (32.0-36.0); MEAN PLATELET VOLUME 7.4 FL (7.0-11.0); MONOCYTE # 0.6 TH/MM3 (0-0.9); NEUT % 59.6 % (16.0-70.0); PLATELET COUNT 165 TH/MM3 (150-450); RED BLOOD COUNT 3.02 MIL/MM3 (4.50-5.90); RED CELL DISTRIBUTION WIDTH 18.4 % (11.6-17.2); WHITE BLOOD COUNT 4.4 TH/MM3 (4.0-11.0)
[2018-02-10 03:55] LABS: ALBUMIN 2.6 GM/DL (3.4-5.0); ALT (GPT) 100 U/L (12-78); AST (GOT) 97 U/L (15-37); BICARBONATE 29.6 MEQ/L (21.0-32.0); BLOOD UREA NITROGEN 7 MG/DL (7-18); CALCIUM 8.4 MG/DL (8.5-10.1); CHLORIDE 98 MEQ/L (98-107); CREATININE 0.65 MG/DL (0.60-1.30); GLOMERULAR FILTRATION RATE 128 ML/MIN (>89); GLUCOSE,RANDOM 109 MG/DL (74-106); SODIUM (NA) 135 MEQ/L (136-145)
[2018-02-10 03:58] LABS: ALKALINE PHOSPHATASE 89 U/L (45-117); TOTAL BILIRUBIN ADULT 1.8 MG/DL (0.2-1.0); TOTAL PROTEIN 6.3 GM/DL (6.4-8.2)
[2018-02-10 07:50] VITALS: BP 109/60; PULSE 85; RESP 17; TEMP 99.2; O2SAT 97
[2018-02-10] MEDS: ENOXAPARIN SODIUM 30 MG/0.3 ML SYRINGE SQ SCH (08:52)
[2018-02-10] MEDS: NICOTINE 14 MG/24 HR PATCH T-DERMAL SCH (08:52)
[2018-02-10] MEDS: CALCIUM/VITAMIN D 250 MG/125 U TAB PO SCH ×3 (08:53→18:00)
[2018-02-10] MEDS: DOCUSATE SODIUM 50 MG/SENNA 8.6 MG TAB PO SCH ×2 (08:53→19:48)
[2018-02-10] MEDS: CHOLECALCIFEROL (VIT D3) 5000 UNIT CAP PO SCH (08:53)
[2018-02-10] MEDS: SODIUM CHLORIDE 0.9% FLUSH 10 ML FLUSH IV FLUSH SCH ×2 (08:53→19:48)
--- NOTE | 2018-02-10 09:21 | PD.ORT.PN ---
Subjective Subjective Remarks Resting comfortably with no new complaints Objective Vitals Vital Signs Date Time Temp Pulse Resp B/P (MAP) Pulse Ox O2 Delivery O2 Flow Rate FiO2 02/10/18 07:50 99.2 85 17 109/60 (76) 97 02/10/18 00:05 98.6 84 18 126/74 (91) 96 02/09/18 20:20 98.2 92 17 146/84 (104) 98 02/09/18 16:00 99.1 82 17 129/73 (91) 100 02/09/18 12:00 97.6 83 17 168/79 (108) 99 I/O 02/09/18 02/09/18 02/09/18 02/10/18 02/10/18 02/10/18 07:00 15:00 23:00 07:00 15:00 23:00 Intake Total 480 ml 480 ml Output Total 1250 ml 550 ml Balance -1250 ml 480 ml -70 ml Intake Oral 480 ml 480 ml Output Urine Total 1250 ml 550 ml # Voids 2 # Bowel Movements 0 0 Result Diagram: 02/10/18 0334 02/10/18 0334 Imaging Last 24 hours Impressions Chest X-Ray 02/05/18 1609 Signed Impressions: Service Date/Time: January 16:14 - CONCLUSION: 1. Chronic osseous changes with widening of the right a.c. joint and an old healed fracture deformity of the posterolateral aspect of the right seventh rib. No acute osseous injury. 2. Lungs are clear Pepito Khoury MD Pelvis X-Ray 02/05/18 3474 Signed Impressions: Service Date/Time: January 14:32 - CONCLUSION: Intertrochanteric fracture of the left hip. Shaun Copeland MD Femur X-Ray 02/05/18 2392 Signed Impressions: Service Date/Time: January 14:32 - CONCLUSION: Intertrochanteric fracture left hip. Otherwise intact left femur. Advanced arthropathy of the medial joint compartment of the knee. Shaun Copeland MD Objective Remarks Left lower extremity: Clean dressings in place with mild drainage. Significant ecchymosis around incisions and fracture. No pain with knee or ankle range of motion. Distally intact sensation with active dorsiflexion and plantarflexion of foot Assessment & Plan Assessment and Plan 1) Left Intertroch Hip Fx s/p IMN - POD 4 -doing well. no c/o -daily dressing changes -CM discharge planning. Unsafe to be discharged home at this point -WBAT -lovenox -scripts on chart -f/u with [facility] or BEL[facility]N in 2 weeks Jl Alston Jr. Feb 10, 2018 09:21
[2018-02-10 11:58] VITALS: BP 104/69; PULSE 89; RESP 17; TEMP 97.7; O2SAT 96
[2018-02-10] MEDS: SODIUM CHLOR 0.9% 1000 ML INJ 1,000 ML IV SCH (12:42)
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
[2018-02-10 16:00] VITALS: BP 110/70; PULSE 80; RESP 17; TEMP 98.4; O2SAT 99
[2018-02-10] MEDS: REMOVE OLD PATCH T-DERMAL SCH (19:48)
[2018-02-10] MEDS: MULTIVITAMIN INJ 10 ML, THIAMINE INJ 100 MG, FOLIC ACID INJ 1 MG in SODIUM CHLORID 0.9%... IV SCH (19:49)
[2018-02-10 20:30] VITALS: BP 111/66; PULSE 80; RESP 17; TEMP 98.7; O2SAT 98
[2018-02-11 00:20] VITALS: BP 117/65; PULSE 75; RESP 16; TEMP 98.8; O2SAT 97
[2018-02-11] MEDS: oxyCODONE/ACETAMINOPHEN 10 MG/325 MG TAB PO PRN ×5 (04:35→21:25)
[2018-02-11] MEDS: SODIUM CHLOR 0.9% 1000 ML INJ 1,000 ML IV SCH ×3 (06:54→21:32)
[2018-02-11 07:41] LABS: ALBUMIN 2.7 GM/DL (3.4-5.0); AST (GOT) 149 U/L (15-37); BICARBONATE 25.5 MEQ/L (21.0-32.0); BLOOD UREA NITROGEN 9 MG/DL (7-18); CALCIUM 8.4 MG/DL (8.5-10.1); CHLORIDE 102 MEQ/L (98-107); CREATININE 0.63 MG/DL (0.60-1.30); GLOMERULAR FILTRATION RATE 133 ML/MIN (>89); GLUCOSE,RANDOM 92 MG/DL (74-106); SODIUM (NA) 136 MEQ/L (136-145)
[2018-02-11 07:42] LABS: ALT (GPT) 135 U/L (12-78)
[2018-02-11 07:44] LABS: ALKALINE PHOSPHATASE 95 U/L (45-117); TOTAL PROTEIN 6.5 GM/DL (6.4-8.2)
[2018-02-11 07:56] VITALS: BP 117/67; PULSE 79; RESP 16; TEMP 99.1; O2SAT 98
[2018-02-11] MEDS: SODIUM CHLORIDE 0.9% FLUSH 10 ML FLUSH IV FLUSH SCH ×2 (09:00→21:29)
[2018-02-11] MEDS: DOCUSATE SODIUM 50 MG/SENNA 8.6 MG TAB PO SCH ×2 (09:42→21:25)
[2018-02-11] MEDS: ENOXAPARIN SODIUM 30 MG/0.3 ML SYRINGE SQ SCH (09:42)
[2018-02-11] MEDS: CHOLECALCIFEROL (VIT D3) 5000 UNIT CAP PO SCH (09:42)
[2018-02-11] MEDS: NICOTINE 14 MG/24 HR PATCH T-DERMAL SCH (09:42)
[2018-02-11] MEDS: CALCIUM/VITAMIN D 250 MG/125 U TAB PO SCH ×3 (09:42→17:27)
--- NOTE | 2018-02-11 09:48 | PD.ORT.PN ---
Subjective Subjective Remarks POD 3 s/p left intertoch with IMN resting comfortably Objective Vitals Vital Signs Date Time Temp Pulse Resp B/P (MAP) Pulse Ox O2 Delivery O2 Flow Rate FiO2 02/11/18 07:56 99.1 79 16 117/67 (84) 98 02/11/18 00:20 98.8 75 16 117/65 (82) 97 02/10/18 20:30 98.7 80 17 111/66 (81) 98 02/10/18 16:00 98.4 80 17 110/70 (83) 99 02/10/18 11:58 97.7 89 17 104/69 (81) 96 I/O 02/10/18 02/10/18 02/10/18 02/11/18 02/11/18 02/11/18 07:00 15:00 23:00 07:00 15:00 23:00 Intake Total 480 ml 480 ml 720 ml Output Total 550 ml Balance -70 ml 480 ml 720 ml Intake Oral 480 ml 480 ml 720 ml Output Urine Total 550 ml # Voids 3 2 # Bowel Movements 0 0 0 Result Diagram: 02/10/18 0334 02/11/18 0440 Imaging Last 24 hours Impressions Chest X-Ray 02/05/18 1609 Signed Impressions: Service Date/Time: January 16:14 - CONCLUSION: 1. Chronic osseous changes with widening of the right a.c. joint and an old healed fracture deformity of the posterolateral aspect of the right seventh rib. No acute osseous injury. 2. Lungs are clear Pepito Khoury MD Pelvis X-Ray 02/05/18 6760 Signed Impressions: Service Date/Time: January 14:32 - CONCLUSION: Intertrochanteric fracture of the left hip. Shaun Copeland MD Femur X-Ray 02/05/18 4511 Signed Impressions: Service Date/Time: January 14:32 - CONCLUSION: Intertrochanteric fracture left hip. Otherwise intact left femur. Advanced arthropathy of the medial joint compartment of the knee. Shaun Copeland MD Objective Remarks Left lower extremity: Clean dressings in place with mild drainage. Significant ecchymosis around incisions and fracture. No pain with knee or ankle range of motion. Distally intact sensation with active dorsiflexion and plantarflexion of foot Assessment & Plan Assessment and Plan 1) Left Intertroch Hip Fx s/p IMN - POD 5 -doing well. no c/o -daily dressing changes -CM discharge planning. Unsafe to be discharged home at this point -WBAT -lovenox -scripts on chart -f/u with [facility] or [facility] in 2 weeks -patient is homeless and is not suitable for discharge back to homeless community while incision is healing. -once incision is healed, then safe to be discharged -would expect incision to be healed by POD 14 Reagan Tolbert/Balance Wheel Screw Hole Tapper PA Feb 11, 2018 09:48
[2018-02-11 11:35] VITALS: BP 104/63; PULSE 91; RESP 18; TEMP 97.8; O2SAT 97
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
[2018-02-11 16:15] VITALS: BP 106/67; PULSE 87; RESP 18; TEMP 97.7; O2SAT 96
[2018-02-11] MEDS: MULTIVITAMIN INJ 10 ML, THIAMINE INJ 100 MG, FOLIC ACID INJ 1 MG in SODIUM CHLORID 0.9%... IV SCH (21:20)
[2018-02-11] MEDS: MAGNESIUM HYDROXIDE SUSP 30 ML CUP PO PRN (21:25)
[2018-02-11] MEDS: REMOVE OLD PATCH T-DERMAL SCH (21:29)
[2018-02-11 23:53] LABS: HCV RNA PCR IU/ML 842000 IU/mL (Not Detected)
[2018-02-12] VITALS (7 sets, daily range): BP systolic 111–134; BP diastolic 59–79; PULSE 71–96; RESP 17–18; TEMP 97.6–98.9; O2SAT 93–100
[2018-02-12] MEDS: oxyCODONE/ACETAMINOPHEN 10 MG/325 MG TAB PO PRN ×5 (01:52→21:31)
[2018-02-12] MEDS: MAGNESIUM HYDROXIDE SUSP 30 ML CUP PO PRN (08:14)
[2018-02-12] MEDS: DOCUSATE SODIUM 50 MG/SENNA 8.6 MG TAB PO SCH ×2 (08:14→21:31)
[2018-02-12] MEDS: CHOLECALCIFEROL (VIT D3) 5000 UNIT CAP PO SCH (08:14)
[2018-02-12] MEDS: NICOTINE 14 MG/24 HR PATCH T-DERMAL SCH (08:14)
[2018-02-12] MEDS: SODIUM CHLORIDE 0.9% FLUSH 10 ML FLUSH IV FLUSH SCH ×2 (08:14→21:31)
[2018-02-12] MEDS: ENOXAPARIN SODIUM 30 MG/0.3 ML SYRINGE SQ SCH (08:14)
[2018-02-12] MEDS: CALCIUM/VITAMIN D 250 MG/125 U TAB PO SCH ×3 (08:14→17:25)
[2018-02-12 08:57] LABS: AUTOMATED NEUTROPHIL # 2.1 TH/MM3 (1.8-7.7); BASOPHIL % 0.7 % (0.0-2.0); EOSINOPHIL # 0.1 TH/MM3 (0-0.4); EOSINOPHIL % 3.1 % (0.0-4.0); HEMATOCRIT 34.9 % (39.0-51.0); HEMOGLOBIN 11.8 GM/DL (13.0-17.0); LYMPH % 20.5 % (9.0-44.0); LYMPHOCYTE # 0.7 TH/MM3 (1.0-4.8); MEAN CELL VOLUME 100.7 FL (80.0-100.0); MEAN CORPUSCULAR HGB CONC 33.8 % (32.0-36.0); MONO % 17.7 % (0.0-8.0); MONOCYTE # 0.6 TH/MM3 (0-0.9); PLATELET COUNT 231 TH/MM3 (150-450); RED BLOOD COUNT 3.46 MIL/MM3 (4.50-5.90); RED CELL DISTRIBUTION WIDTH 18.4 % (11.6-17.2); WHITE BLOOD COUNT 3.7 TH/MM3 (4.0-11.0)
[2018-02-12 09:28] LABS: ALBUMIN 2.9 GM/DL (3.4-5.0); AST (GOT) 191 U/L (15-37); BICARBONATE 26.8 MEQ/L (21.0-32.0); BLOOD UREA NITROGEN 7 MG/DL (7-18); CALCIUM 8.8 MG/DL (8.5-10.1); CHLORIDE 99 MEQ/L (98-107); CREATININE 0.66 MG/DL (0.60-1.30); GLOMERULAR FILTRATION RATE 126 ML/MIN (>89); GLUCOSE,RANDOM 84 MG/DL (74-106); SODIUM (NA) 135 MEQ/L (136-145)
[2018-02-12 09:30] LABS: ALT (GPT) 188 U/L (12-78)
[2018-02-12 09:32] LABS: ALKALINE PHOSPHATASE 112 U/L (45-117); TOTAL BILIRUBIN ADULT 2.2 MG/DL (0.2-1.0)
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
[2018-02-12] MEDS: SODIUM CHLOR 0.9% 1000 ML INJ 1,000 ML IV SCH ×2 (10:12→19:18)
[2018-02-12] MEDS: MULTIVITAMIN INJ 10 ML, THIAMINE INJ 100 MG, FOLIC ACID INJ 1 MG in SODIUM CHLORID 0.9%... IV SCH (21:31)
[2018-02-12] MEDS: REMOVE OLD PATCH T-DERMAL SCH (21:36)
[2018-02-13] MEDS: oxyCODONE/ACETAMINOPHEN 10 MG/325 MG TAB PO PRN ×6 (01:32→21:51)
[2018-02-13] MEDS: SODIUM CHLOR 0.9% 1000 ML INJ 1,000 ML IV SCH ×3 (02:49→22:36)
[2018-02-13 06:14] LABS: HEMATOCRIT 32.5 % (39.0-51.0); HEMOGLOBIN 11.1 GM/DL (13.0-17.0); MEAN CELL VOLUME 101.5 FL (80.0-100.0); MEAN CORPUSCULAR HEMOGLOBIN 34.6 PG (27.0-34.0); MEAN CORPUSCULAR HGB CONC 34.1 % (32.0-36.0); MEAN PLATELET VOLUME 8.2 FL (7.0-11.0); PLATELET COUNT 257 TH/MM3 (150-450); RED CELL DISTRIBUTION WIDTH 18.3 % (11.6-17.2); WHITE BLOOD COUNT 3.6 TH/MM3 (4.0-11.0)
[2018-02-13 06:40] LABS: ALBUMIN 2.7 GM/DL (3.4-5.0); AST (GOT) 174 U/L (15-37); BICARBONATE 26.3 MEQ/L (21.0-32.0); BLOOD UREA NITROGEN 8 MG/DL (7-18); CALCIUM 8.7 MG/DL (8.5-10.1); CHLORIDE 102 MEQ/L (98-107); CREATININE 0.69 MG/DL (0.60-1.30); GLOMERULAR FILTRATION RATE 119 ML/MIN (>89); GLUCOSE,RANDOM 88 MG/DL (74-106); SODIUM (NA) 138 MEQ/L (136-145)
[2018-02-13 06:43] LABS: ALKALINE PHOSPHATASE 104 U/L (45-117); ALT (GPT) 195 U/L (12-78); TOTAL PROTEIN 6.7 GM/DL (6.4-8.2)
[2018-02-13 08:00] VITALS: BP_SYST 122; BP_SYST 132; BP_DIAS 64; BP_DIAS 75; PULSE 88; PULSE 99; RESP 18; TEMP 98; TEMP 98.6; O2SAT 99
[2018-02-13] MEDS: DOCUSATE SODIUM 50 MG/SENNA 8.6 MG TAB PO SCH ×2 (09:12→21:49)
[2018-02-13] MEDS: CHOLECALCIFEROL (VIT D3) 5000 UNIT CAP PO SCH (09:12)
[2018-02-13] MEDS: CALCIUM/VITAMIN D 250 MG/125 U TAB PO SCH ×3 (09:12→17:52)
[2018-02-13] MEDS: NICOTINE 14 MG/24 HR PATCH T-DERMAL SCH (09:17)
[2018-02-13] MEDS: ENOXAPARIN SODIUM 30 MG/0.3 ML SYRINGE SQ SCH (09:18)
[2018-02-13] MEDS: SODIUM CHLORIDE 0.9% FLUSH 10 ML FLUSH IV FLUSH SCH ×2 (09:18→21:49)
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
[2018-02-13 12:00] VITALS: BP 111/61; PULSE 90; RESP 18; TEMP 98.7; O2SAT 100
[2018-02-13 19:05] VITALS: BP 136/68; PULSE 86; RESP 18; TEMP 97.5; O2SAT 96
[2018-02-13] MEDS: MULTIVITAMIN INJ 10 ML, THIAMINE INJ 100 MG, FOLIC ACID INJ 1 MG in SODIUM CHLORID 0.9%... IV SCH (21:49)
[2018-02-13] MEDS: REMOVE OLD PATCH T-DERMAL SCH (21:50)
[2018-02-14 00:39] VITALS: BP 110/59; PULSE 86; RESP 18; TEMP 98.4; O2SAT 98
[2018-02-14] MEDS: oxyCODONE/ACETAMINOPHEN 10 MG/325 MG TAB PO PRN ×6 (02:34→23:15)
[2018-02-14 06:09] LABS: HEMATOCRIT 32.6 % (39.0-51.0); HEMOGLOBIN 11.2 GM/DL (13.0-17.0); MEAN CORPUSCULAR HEMOGLOBIN 34.9 PG (27.0-34.0); MEAN CORPUSCULAR HGB CONC 34.2 % (32.0-36.0); MEAN PLATELET VOLUME 8.4 FL (7.0-11.0); PLATELET COUNT 241 TH/MM3 (150-450); RED CELL DISTRIBUTION WIDTH 18.7 % (11.6-17.2); WHITE BLOOD COUNT 4.2 TH/MM3 (4.0-11.0)
[2018-02-14 06:40] LABS: ALBUMIN 2.6 GM/DL (3.4-5.0); AST (GOT) 172 U/L (15-37); BICARBONATE 26.2 MEQ/L (21.0-32.0); BLOOD UREA NITROGEN 8 MG/DL (7-18); CALCIUM 8.7 MG/DL (8.5-10.1); CHLORIDE 99 MEQ/L (98-107); CREATININE 0.65 MG/DL (0.60-1.30); GLOMERULAR FILTRATION RATE 128 ML/MIN (>89); GLUCOSE,RANDOM 89 MG/DL (74-106); SODIUM (NA) 135 MEQ/L (136-145)
[2018-02-14 06:42] VITALS: BP 109/63; PULSE 65; RESP 18; TEMP 98.5; O2SAT 96
[2018-02-14 06:42] LABS: ALT (GPT) 206 U/L (12-78)
[2018-02-14 06:43] LABS: ALKALINE PHOSPHATASE 106 U/L (45-117); TOTAL BILIRUBIN ADULT 1.9 MG/DL (0.2-1.0); TOTAL PROTEIN 6.5 GM/DL (6.4-8.2)
[2018-02-14] MEDS: SODIUM CHLOR 0.9% 1000 ML INJ 1,000 ML IV SCH (07:42)
[2018-02-14] MEDS: DOCUSATE SODIUM 50 MG/SENNA 8.6 MG TAB PO SCH ×2 (08:19→23:13)
[2018-02-14] MEDS: ENOXAPARIN SODIUM 30 MG/0.3 ML SYRINGE SQ SCH (08:19)
[2018-02-14] MEDS: CHOLECALCIFEROL (VIT D3) 5000 UNIT CAP PO SCH (08:19)
[2018-02-14] MEDS: NICOTINE 14 MG/24 HR PATCH T-DERMAL SCH (08:20)
[2018-02-14] MEDS: SODIUM CHLORIDE 0.9% FLUSH 10 ML FLUSH IV FLUSH SCH ×2 (08:20→23:15)
[2018-02-14] MEDS: CALCIUM/VITAMIN D 250 MG/125 U TAB PO SCH ×3 (08:20→19:10)
[2018-02-14 12:00] VITALS: BP 119/69; PULSE 76; RESP 19; TEMP 98.7; O2SAT 98
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
[2018-02-14 16:00] VITALS: BP 107/63; PULSE 71; RESP 18; TEMP 98.6; O2SAT 100
[2018-02-14 20:20] VITALS: BP 131/76; PULSE 74; RESP 18; TEMP 99; O2SAT 99
[2018-02-14] MEDS: REMOVE OLD PATCH T-DERMAL SCH (21:00)
[2018-02-14 23:28] VITALS: BP 130/78; PULSE 80; RESP 18; TEMP 98.8; O2SAT 95
[2018-02-15] MEDS: SODIUM CHLOR 0.9% 1000 ML INJ 1,000 ML IV SCH ×3 (01:54→20:06)
[2018-02-15] MEDS: oxyCODONE/ACETAMINOPHEN 10 MG/325 MG TAB PO PRN ×5 (03:14→20:11)
[2018-02-15 06:58] LABS: AUTOMATED NEUTROPHIL # 3.1 TH/MM3 (1.8-7.7); BASOPHIL # 0.2 TH/MM3 (0-0.2); BASOPHIL % 3.4 % (0.0-2.0); EOSINOPHIL # 0.2 TH/MM3 (0-0.4); EOSINOPHIL % 3.2 % (0.0-4.0); HEMOGLOBIN 11.2 GM/DL (13.0-17.0); LYMPH % 22.8 % (9.0-44.0); LYMPHOCYTE # 1.3 TH/MM3 (1.0-4.8); MEAN CORPUSCULAR HEMOGLOBIN 34.8 PG (27.0-34.0); MEAN CORPUSCULAR HGB CONC 33.8 % (32.0-36.0); MEAN PLATELET VOLUME 8.5 FL (7.0-11.0); MONO % 15.6 % (0.0-8.0); MONOCYTE # 0.9 TH/MM3 (0-0.9); PLATELET COUNT 286 TH/MM3 (150-450); RED BLOOD COUNT 3.21 MIL/MM3 (4.50-5.90); RED CELL DISTRIBUTION WIDTH 18.3 % (11.6-17.2); WHITE BLOOD COUNT 5.5 TH/MM3 (4.0-11.0)
[2018-02-15 07:04] LABS: ALBUMIN 2.9 GM/DL (3.4-5.0); AST (GOT) 176 U/L (15-37); BICARBONATE 28.8 MEQ/L (21.0-32.0); BLOOD UREA NITROGEN 9 MG/DL (7-18); CHLORIDE 97 MEQ/L (98-107); CREATININE 0.69 MG/DL (0.60-1.30); GLOMERULAR FILTRATION RATE 119 ML/MIN (>89); GLUCOSE,RANDOM 76 MG/DL (74-106); SODIUM (NA) 135 MEQ/L (136-145)
[2018-02-15 07:08] LABS: ALKALINE PHOSPHATASE 109 U/L (45-117); ALT (GPT) 221 U/L (12-78); TOTAL BILIRUBIN ADULT 2.2 MG/DL (0.2-1.0); TOTAL PROTEIN 6.9 GM/DL (6.4-8.2)
[2018-02-15 08:00] VITALS: BP 99/53; PULSE 80; RESP 18; TEMP 98.6; O2SAT 96
[2018-02-15] MEDS: DOCUSATE SODIUM 50 MG/SENNA 8.6 MG TAB PO SCH ×2 (09:17→20:11)
[2018-02-15] MEDS: FOLIC ACID 1 MG TAB PO SCH (09:17)
[2018-02-15] MEDS: CALCIUM/VITAMIN D 250 MG/125 U TAB PO SCH ×3 (09:17→17:53)
[2018-02-15] MEDS: MULTIVITAMINS/MINERALS THERAPEUTIC TAB PO SCH (09:18)
[2018-02-15] MEDS: THIAMINE HCL 100 MG TAB PO SCH (09:18)
[2018-02-15] MEDS: CHOLECALCIFEROL (VIT D3) 5000 UNIT CAP PO SCH (09:18)
[2018-02-15] MEDS: NICOTINE 14 MG/24 HR PATCH T-DERMAL SCH (09:19)
[2018-02-15] MEDS: ENOXAPARIN SODIUM 30 MG/0.3 ML SYRINGE SQ SCH (09:19)
[2018-02-15] MEDS: SODIUM CHLORIDE 0.9% FLUSH 10 ML FLUSH IV FLUSH SCH ×2 (09:20→20:11)
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
[2018-02-15 12:00] VITALS: BP 93/54; PULSE 75; RESP 18; TEMP 97.8; O2SAT 97
[2018-02-15 16:00] VITALS: BP 148/65; PULSE 71; RESP 18; TEMP 98.6; O2SAT 99
[2018-02-15 20:09] VITALS: BP 120/70; PULSE 83; RESP 17; TEMP 98.8; O2SAT 99
[2018-02-15] MEDS: REMOVE OLD PATCH T-DERMAL SCH (20:12)
[2018-02-16] MEDS: oxyCODONE/ACETAMINOPHEN 10 MG/325 MG TAB PO PRN ×5 (00:10→18:27)
[2018-02-16 00:15] VITALS: BP 116/62; PULSE 85; RESP 16; TEMP 98.8; O2SAT 98
[2018-02-16] MEDS: SODIUM CHLOR 0.9% 1000 ML INJ 1,000 ML IV SCH ×3 (05:12→21:12)
[2018-02-16 08:00] VITALS: BP 90/52; PULSE 78; RESP 16; TEMP 98.8; O2SAT 95
[2018-02-16] MEDS: FOLIC ACID 1 MG TAB PO SCH (08:30)
[2018-02-16] MEDS: CALCIUM/VITAMIN D 250 MG/125 U TAB PO SCH ×3 (08:30→18:26)
[2018-02-16] MEDS: CHOLECALCIFEROL (VIT D3) 5000 UNIT CAP PO SCH (08:30)
[2018-02-16] MEDS: DOCUSATE SODIUM 50 MG/SENNA 8.6 MG TAB PO SCH ×2 (08:30→21:16)
[2018-02-16] MEDS: MULTIVITAMINS/MINERALS THERAPEUTIC TAB PO SCH (08:30)
[2018-02-16] MEDS: NICOTINE 14 MG/24 HR PATCH T-DERMAL SCH (08:30)
[2018-02-16] MEDS: THIAMINE HCL 100 MG TAB PO SCH (08:30)
[2018-02-16] MEDS: SODIUM CHLORIDE 0.9% FLUSH 10 ML FLUSH IV FLUSH SCH ×2 (08:31→21:00)
[2018-02-16] MEDS: ENOXAPARIN SODIUM 30 MG/0.3 ML SYRINGE SQ SCH (08:37)
--- NOTE | 2018-02-16 08:52 | PD.ORT.PN ---
Subjective Subjective Remarks Resting comfortably with no new complaints Objective Vitals Vital Signs Date Time Temp Pulse Resp B/P (MAP) Pulse Ox O2 Delivery O2 Flow Rate FiO2 02/16/18 07:39 Room Air 02/16/18 00:15 98.8 85 16 116/62 (80) 98 02/15/18 20:09 98.8 83 17 120/70 (87) 99 02/15/18 16:00 98.6 71 18 148/65 (92) 99 02/15/18 12:00 97.8 75 18 93/54 (67) 97 I/O 02/15/18 02/15/18 02/15/18 02/16/18 02/16/18 02/16/18 07:00 15:00 23:00 07:00 15:00 23:00 Intake Total 240 ml Balance 240 ml Intake Oral 240 ml # Voids 2 5 # Bowel Movements 1 Result Diagram: 02/15/18 0352 02/15/18 0352 Imaging Last 24 hours Impressions Chest X-Ray 02/05/18 1609 Signed Impressions: Service Date/Time: January 16:14 - CONCLUSION: 1. Chronic osseous changes with widening of the right a.c. joint and an old healed fracture deformity of the posterolateral aspect of the right seventh rib. No acute osseous injury. 2. Lungs are clear Pepito Khoury MD Pelvis X-Ray 02/05/18 2835 Signed Impressions: Service Date/Time: January 14:32 - CONCLUSION: Intertrochanteric fracture of the left hip. Shaun Copeland MD Femur X-Ray 02/05/18 5015 Signed Impressions: Service Date/Time: January 14:32 - CONCLUSION: Intertrochanteric fracture left hip. Otherwise intact left femur. Advanced arthropathy of the medial joint compartment of the knee. Shaun Copeland MD Objective Remarks Left lower extremity: Clean dressings in place with mild drainage. Significant ecchymosis around incisions and fracture. No pain with knee or ankle range of motion. Distally intact sensation with active dorsiflexion and plantarflexion of foot Assessment & Plan Assessment and Plan 1) Left Intertroch Hip Fx s/p IMN - POD 10 -doing well. no c/o -daily dressing changes -CM discharge planning. Unsafe to be discharged home at this point -WBAT -lovenox -scripts on chart -f/u with [facility] or [facility] in 2 weeks -patient is homeless and is not suitable for discharge back to homeless community while incision is healing. -once incision is healed, then safe to be discharged -would expect incision to be healed by POD 14 Jl Alston Jr. Feb 16, 2018 08:52
--- NOTE | 2018-02-16 09:32 | HHI.FPPN ---
Subjective Remarks No acute events overnight. Feels well this morning. No CP/SOB. Hip comfortable. Objective Vitals Vital Signs Date Time Temp Pulse Resp B/P (MAP) Pulse Ox O2 Delivery O2 Flow Rate FiO2 02/16/18 08:00 98.8 78 16 90/52 (65) 95 02/16/18 07:39 Room Air 02/16/18 00:15 98.8 85 16 116/62 (80) 98 02/15/18 20:09 98.8 83 17 120/70 (87) 99 02/15/18 16:00 98.6 71 18 148/65 (92) 99 02/15/18 12:00 97.8 75 18 93/54 (67) 97 I/O 02/15/18 02/15/18 02/15/18 02/16/18 02/16/18 02/16/18 07:00 15:00 23:00 07:00 15:00 23:00 Intake Total 240 ml Balance 240 ml Intake Oral 240 ml # Voids 2 5 # Bowel Movements 1 Result Diagram: 02/15/18 0352 02/15/18 0352 Imaging Last Impressions Lower Extremity Ultrasound 02/08/18 0000 Signed Impressions: Service Date/Time: Thursday, February 08, 2018 11:59 - CONCLUSION: Negative study with no evidence of hematoma or pseudoaneurysm. Jl Nicholson MD Hip X-Ray 02/06/18 0000 Signed Impressions: Service Date/Time: Tuesday, February 06, 2018 09:35 - CONCLUSION: Anatomic alignment. Jeremy Wells MD FACR Gall Bladder Ultrasound 02/06/18 0000 Signed Impressions: Service Date/Time: Tuesday, February 06, 2018 13:13 - CONCLUSION: Echogenic hepatic parenchyma. No focal abnormalities Kuldeep Thomas MD Chest X-Ray 02/05/18 1609 Signed Impressions: Service Date/Time: January 16:14 - CONCLUSION: 1. Chronic osseous changes with widening of the right a.c. joint and an old healed fracture deformity of the posterolateral aspect of the right seventh rib. No acute osseous injury. 2. Lungs are clear Pepito Khoury MD Pelvis X-Ray 02/05/18 4314 Signed Impressions: Service Date/Time: January 14:32 - CONCLUSION: Intertrochanteric fracture of the left hip. Shaun Copeland MD Femur X-Ray 02/05/18 1354 Signed Impressions: Service Date/Time: January 14:32 - CONCLUSION: Intertrochanteric fracture left hip. Otherwise intact left femur. Advanced arthropathy of the medial joint compartment of the knee. Shaun Copeland MD Objective Remarks GENERAL: Well-nourished, well-developed patient lying in bed, no acute distress. SKIN: Josi over incisions of left hip removed. Wounds c/d/i. CARDIOVASCULAR: Regular rate and rhythm without murmurs, gallops, or rubs. RESPIRATORY: CTA, Breath sounds equal bilaterally. No accessory muscle use. GASTROINTESTINAL: Abdomen soft, non-tender, nondistended EXTREMITIES: No cyanosis, or edema. NEUROLOGICAL: Awake, alert, and oriented x 3. Non-focal. Procedures ORIF L hip 02/06 Medications and IVs Current Medications Medications (Trade) Dose Ordered Sig/Viktoria Route Start Time Stop Time Status Last Admin (NS Flush) 2 ml UNSCH PRN IV FLUSH 02/05/18 17:45 02/09/18 02:31 (NS Flush) 2 ml BID IV FLUSH 02/05/18 21:00 02/15/18 20:11 (Tylenol) 650 mg Q4H PRN PO 02/05/18 17:45 (Zofran Inj) 4 mg Q6H PRN IVP 02/05/18 17:45 02/05/18 22:02 (Narcan Inj) 0.4 mg UNSCH PRN IV PUSH 02/05/18 17:45 (Whitney-Colace) 1 tab BID PO 02/05/18 21:00 02/16/18 08:30 (Milk Of Magnesia Liq) 30 ml Q12H PRN PO 02/05/18 17:45 02/12/18 08:14 (Senokot) 17.2 mg Q12H PRN PO 02/05/18 17:45 02/07/18 20:12 (Dulcolax Supp) 10 mg DAILY PRN RECTAL 02/05/18 17:45 (Lactulose Liq) 30 ml DAILY PRN PO 02/05/18 17:45 02/07/18 20:12 Sodium Chloride 1,000 ml @ 110 mls/hr Q9H6M IV 02/05/18 23:30 02/15/18 12:24 (Lovenox Inj) 30 mg Q24H SQ 02/07/18 09:00 Future hold 02/16/18 08:37 (Oscal-D 250-125) 250 mg TID PO 02/06/18 13:00 02/16/18 12:06 (Benadryl) 25 mg Q6H PRN PO 02/06/18 11:30 02/07/18 13:11 (Vitamin D3) 5,000 units DAILY PO 02/07/18 09:00 02/16/18 08:30 (Habitrol 14 Mg Patch.24 Hr) 1 patch DAILY T-DERMAL 02/06/18 16:15 02/16/18 08:30 Miscellaneous Information 1 HS T-DERMAL 02/06/18 21:00 02/15/18 20:12 (Percocet 5-325 Mg) 1 tab Q4H PRN PO 02/09/18 09:45 (Percocet 10-325 Mg) 1 tab Q4HR PRN PO 02/09/18 09:45 02/16/18 12:06 (Folate) 1 mg DAILY PO 02/15/18 09:00 02/20/18 08:59 02/16/18 08:30 (Vitamin B1) 100 mg DAILY PO 02/15/18 09:00 02/16/18 08:30 (Theragran M Tab) 1 tab DAILY PO 02/15/18 09:00 02/20/18 08:59 02/16/18 08:30 A/P Assessment and Plan Mr. Krishnan is a 52-year-old male with past medical history of alcohol abuse presenting with: Problem List: (1) Closed left hip fracture ICD Codes: S72.002A - Fracture of unspecified part of neck of left femur, initial encounter for closed fracture Status: Resolved Plan: POD #10 after ORIF, doing well Josi removed 02/16 -Orthopedics consulted, appreciate recommendations -S/p left hip reduction and intramedullary nail fixation on 02/06 -Patient cleared from ortho standpoint, plan to f/u as outpatient with Dr. Rudd in 2 wks -Recommend discharge POD #14 due to risk of infection -Pain well controlled -Percocet po for pain every 6 hours PRN -If pain not controlled on current medication regimen can consider giving Toradol 30 IV/IM every 6 hours for breakthrough -PT/OT following Patient to continue physical therapy 7 days a week (2) Alcohol abuse ICD Codes: F10.10 - Alcohol abuse, uncomplicated Status: Acute Plan: Patient admits to history of alcohol abuse and withdrawal. Chart review shows that patient was previously intubated for his withdrawal. CBC shows macrocytosis. Transaminitis. CIWA scores 0-1 for last 48 hrs -Continue multivitamin -Discontinue CIWA scoring (3) Abnormal LFTs ICD Codes: R79.89 - Abnormal LFTs Status: Chronic Plan: Likely due to combination of alcohol use and hepatitis C Gallbladder ultrasound on 02/06 shows echogenic hepatic parenchyma (likely steatosis). No focal abnormalities -Will continue to monitor -Hepatitis panel is positive for hepatitis C, see below for plan (4) Hepatitis C antibody test positive ICD Codes: R76.8 - Other specified abnormal immunological findings in serum Status: Chronic Plan: Hepatitis C IgG antibody reactive on 02/06. Patient informed of this result on 02/07. He was unaware of this diagnosis. He has a distant history of IVDU, but previous testing was negative for hepatitis. He understands the prognosis of this disease and the consequences if he does not stop drinking alcohol. Item Value Date Time Hepatitis C RNA Genotype 1b 02/07/182024 Hepatitis C RNA (PCR) IUs/ml 619534 IU/mL H 02/07/182024 Hepatitis C RNA (PCR) log IUs/ml 5.93 H 02/07/182024 - f/u with GI as outpatient for hepatitis C treatment evaluation (5) FEN Status: Acute Plan: Fluids: per PO Electrolytes: Continue to monitor and replete as needed. Nutrition: Regular DVT Prophylaxis: Early ambulation. Bilateral SCDs. Lovenox 30 mg sq 24h Dispo: Patient homeless with non-hygienic living situation and risk of post-op infection, anticipate discharge POD#14 (recommended by ortho) once incision is healed to decrease risk of infection given living conditions. -Case management consulted and aware of patients barrier to discharge. Patient is homeless and does not have a state ID thus does not qualify any charitable discharge placement. Problem Qualifiers (1) Closed left hip fracture: Qualified Codes: S72.002A - Fracture of unspecified part of neck of left femur , initial encounter for closed fracture Joseluis Guillory MD R2 Feb 16, 2018 9:32 am
[2018-02-16 12:00] VITALS: BP 98/62; PULSE 81; RESP 16; TEMP 97.8; O2SAT 94
[2018-02-16] MEDS ORDERED: oxyCODONE/ACETAMINOPHEN 5 MG/325 MG TAB PO PRN (15:30)
[2018-02-16] MEDS ORDERED: KETOROLAC TROMETHAMINE 60 MG/2 ML (IM) VIAL IM PRN (15:30)
[2018-02-16 16:00] VITALS: BP 97/56; PULSE 71; RESP 16; TEMP 97.9; O2SAT 98
[2018-02-16 20:58] VITALS: BP 142/64; PULSE 62; RESP 18; TEMP 98.1; O2SAT 100
[2018-02-16] MEDS: REMOVE OLD PATCH T-DERMAL SCH (21:00)
[2018-02-16 23:29] VITALS: BP 122/76; PULSE 60; RESP 17; TEMP 98.1; O2SAT 100
[2018-02-17] MEDS: oxyCODONE/ACETAMINOPHEN 10 MG/325 MG TAB PO PRN ×4 (00:32→20:28)
[2018-02-17 08:00] VITALS: BP 109/64; PULSE 72; RESP 16; TEMP 98.9; O2SAT 96
[2018-02-17] MEDS: SODIUM CHLOR 0.9% 1000 ML INJ 1,000 ML IV SCH ×2 (08:30→17:36)
[2018-02-17] MEDS: CHOLECALCIFEROL (VIT D3) 5000 UNIT CAP PO SCH (08:57)
[2018-02-17] MEDS: SODIUM CHLORIDE 0.9% FLUSH 10 ML FLUSH IV FLUSH SCH ×2 (08:57→20:28)
[2018-02-17] MEDS: DOCUSATE SODIUM 50 MG/SENNA 8.6 MG TAB PO SCH ×2 (08:57→20:28)
[2018-02-17] MEDS: MULTIVITAMINS/MINERALS THERAPEUTIC TAB PO SCH (08:57)
[2018-02-17] MEDS: NICOTINE 14 MG/24 HR PATCH T-DERMAL SCH (08:57)
[2018-02-17] MEDS: CALCIUM/VITAMIN D 250 MG/125 U TAB PO SCH ×3 (08:57→17:53)
[2018-02-17] MEDS: ENOXAPARIN SODIUM 30 MG/0.3 ML SYRINGE SQ SCH (08:57)
--- NOTE | 2018-02-17 11:04 | HHI.FPPN ---
Subjective Remarks Patient seen and examined this morning at bedside. No acute events overnight. Patient stated pain is improving, well-controlled on current medication regimen raised 05/29. Patient denies any chest pain or shortness of breath. He continues to do well with physical therapy and is able to ambulate on his own. Patient stated he had a bowel movement yesterday. (Luiz Fowler MD, R1) Objective Vitals Vital Signs Date Time Temp Pulse Resp B/P (MAP) Pulse Ox O2 Delivery O2 Flow Rate FiO2 02/17/18 08:00 98.9 72 16 109/64 (79) 96 02/17/18 07:39 18 02/17/18 07:19 Room Air 02/16/18 23:29 98.1 60 17 122/76 (91) 100 02/16/18 23:00 Room Air 02/16/18 20:58 98.1 62 18 142/64 (90) 100 02/16/18 16:00 97.9 71 16 97/56 (70) 98 02/16/18 12:00 97.8 81 16 98/62 (74) 94 I/O 02/16/18 02/16/18 02/16/18 02/17/18 02/17/18 02/17/18 07:00 15:00 23:00 07:00 15:00 23:00 Intake Total 720 ml 720 ml Output Total 250 ml Balance 720 ml 470 ml Intake Oral 720 ml 720 ml Output Urine Total 250 ml # Voids 4 2 # Bowel Movements 1 0 (Luiz Fowler MD, R1) Result Diagram: 02/15/18 0352 02/15/18 0352 Objective Remarks GENERAL: Well-nourished, well-developed patient lying in bed, no acute distress. SKIN: Warm and well perfused, dressing c/d/i. CARDIOVASCULAR: Regular rate and rhythm without murmurs, gallops, or rubs. RESPIRATORY: CTA, Breath sounds equal bilaterally. No accessory muscle use. GASTROINTESTINAL: Abdomen soft, non-tender, nondistended EXTREMITIES: No cyanosis, or edema. NEUROLOGICAL: Awake, alert, and oriented x 3. Non-focal. Procedures ORIF L hip 02/06 (Luiz Fowler MD, R1) A/P Assessment and Plan Mr. Krishnan is a 52-year-old male with past medical history of alcohol abuse presenting with: (Luiz Fowler MD, R1) Attending Attestation Patient seen and examined. Case reviewed and discussed Agree with plan of care as discussed with me and documented in the resident note. (Salome Jolly MD) Problem List: (1) Closed left hip fracture ICD Codes: S72.002A - Fracture of unspecified part of neck of left femur, initial encounter for closed fracture Status: Resolved Plan: POD #11 after ORIF, doing well Josi removed 02/16 -Orthopedics consulted, appreciate recommendations -S/p left hip reduction and intramedullary nail fixation on 02/06 -Patient cleared from ortho standpoint, plan to f/u as outpatient with Dr. Rudd in 2 wks -Recommend discharge POD #14 due to risk of infection -Pain well controlled -Percocet po for pain every 6 hours PRN -If pain not controlled on current medication regimen can consider giving Toradol 30 IV/IM every 6 hours for breakthrough -PT/OT following Patient to continue physical therapy 7 days a week (2) Alcohol abuse ICD Codes: F10.10 - Alcohol abuse, uncomplicated Status: Acute Plan: Patient admits to history of alcohol abuse and withdrawal. Chart review shows that patient was previously intubated for his withdrawal. CBC shows macrocytosis. Transaminitis. CIWA scores 0-1 for last 48 hrs -Continue multivitamin -Discontinue CIWA scoring (3) Abnormal LFTs ICD Codes: R79.89 - Abnormal LFTs Status: Chronic Plan: Likely due to combination of alcohol use and hepatitis C Gallbladder ultrasound on 02/06 shows echogenic hepatic parenchyma (likely steatosis). No focal abnormalities -LFTs stable -Will continue to monitor -Hepatitis panel is positive for hepatitis C, see below for plan (4) Hepatitis C antibody test positive ICD Codes: R76.8 - Other specified abnormal immunological findings in serum Status: Chronic Plan: Hepatitis C IgG antibody reactive on 02/06. Patient informed of this result on 02/07. He was unaware of this diagnosis. He has a distant history of IVDU, but previous testing was negative for hepatitis. He understands the prognosis of this disease and the consequences if he does not stop drinking alcohol. Item Value Date Time Hepatitis C RNA Genotype 1b 02/07/182024 Hepatitis C RNA (PCR) IUs/ml 861308 IU/mL H 02/07/182024 Hepatitis C RNA (PCR) log IUs/ml 5.93 H 02/07/182024 - f/u with GI as outpatient for hepatitis C treatment evaluation (5) FEN Status: Acute Plan: Fluids: per PO Electrolytes: Continue to monitor and replete as needed. Nutrition: Regular DVT Prophylaxis: Early ambulation. Bilateral SCDs. Lovenox 30 mg sq 24h Dispo: Patient homeless with non-hygienic living situation and risk of post-op infection, anticipate discharge POD#14 (recommended by ortho) once incision is healed to decrease risk of infection given living conditions. -Case management consulted and aware of patients barrier to discharge. Patient is homeless and does not have a state ID [facility] (Luiz Fowler MD, R1) Problem Qualifiers (1) Closed left hip fracture: Qualified Codes: S72.002A - Fracture of unspecified part of neck of left femur , initial encounter for closed fracture Luiz Fowler MD, R1 February 17, 2018 11:04 Salome Jolly MD February 21, 2018 10:19
[2018-02-17 12:00] VITALS: BP 115/59; PULSE 70; RESP 16; TEMP 98; O2SAT 97
[2018-02-17] MEDS ORDERED: oxyCODONE/ACETAMINOPHEN 5 MG/325 MG TAB PO PRN (12:45)
[2018-02-17 16:00] VITALS: BP 106/57; PULSE 63; RESP 16; TEMP 98.1; O2SAT 97
[2018-02-17] MEDS: REMOVE OLD PATCH T-DERMAL SCH (20:28)
[2018-02-17 20:30] VITALS: BP 123/70; PULSE 77; RESP 18; TEMP 98.3; O2SAT 96
[2018-02-17 22:57] VITALS: BP 104/74; PULSE 83; RESP 18; TEMP 98.1; O2SAT 95
[2018-02-18] MEDS: SODIUM CHLOR 0.9% 1000 ML INJ 1,000 ML IV SCH ×3 (02:37→19:37)
[2018-02-18] MEDS: oxyCODONE/ACETAMINOPHEN 10 MG/325 MG TAB PO PRN ×2 (04:31→15:39)
[2018-02-18 07:07] LABS: HEMOGLOBIN 11.7 GM/DL (13.0-17.0)
[2018-02-18 07:26] LABS: ALBUMIN 2.8 GM/DL (3.4-5.0); ALT (GPT) 264 U/L (12-78); AST (GOT) 199 U/L (15-37); BICARBONATE 29.2 MEQ/L (21.0-32.0); BLOOD UREA NITROGEN 8 MG/DL (7-18); CALCIUM 9.2 MG/DL (8.5-10.1); CHLORIDE 102 MEQ/L (98-107); CREATININE 0.66 MG/DL (0.60-1.30); GLOMERULAR FILTRATION RATE 126 ML/MIN (>89); GLUCOSE,RANDOM 86 MG/DL (74-106); SODIUM (NA) 140 MEQ/L (136-145)
[2018-02-18 07:27] LABS: ALKALINE PHOSPHATASE 172 U/L (45-117); TOTAL BILIRUBIN ADULT 1.6 MG/DL (0.2-1.0); TOTAL PROTEIN 7.2 GM/DL (6.4-8.2)
[2018-02-18 08:00] VITALS: BP 107/64; PULSE 75; RESP 16; TEMP 98.4; O2SAT 95
[2018-02-18] MEDS: CALCIUM/VITAMIN D 250 MG/125 U TAB PO SCH ×3 (08:41→18:00)
[2018-02-18] MEDS: ENOXAPARIN SODIUM 30 MG/0.3 ML SYRINGE SQ SCH (08:41)
[2018-02-18] MEDS: CHOLECALCIFEROL (VIT D3) 5000 UNIT CAP PO SCH (08:41)
[2018-02-18] MEDS: MULTIVITAMINS/MINERALS THERAPEUTIC TAB PO SCH (08:41)
[2018-02-18] MEDS: DOCUSATE SODIUM 50 MG/SENNA 8.6 MG TAB PO SCH ×2 (08:41→20:13)
[2018-02-18] MEDS: NICOTINE 14 MG/24 HR PATCH T-DERMAL SCH (08:42)
[2018-02-18] MEDS: SODIUM CHLORIDE 0.9% FLUSH 10 ML FLUSH IV FLUSH SCH ×2 (09:00→20:13)
[2018-02-18] MEDS ORDERED: KETOROLAC TROMETHAMINE 30 MG/ML (IVP) VIAL IV PUSH ONE (11:45)
[2018-02-18 12:00] VITALS: BP 106/64; PULSE 91; RESP 16; TEMP 97.9; O2SAT 99
--- NOTE | 2018-02-18 13:18 | HHI.FPPN ---
Subjective Remarks Patient complaining of pain of the left hip, medication is helping. He denies fever, chills, chest pain, nausea, vomiting, shortness of breath. (Julian Gamino MD R3) Objective Vitals Vital Signs Date Time Temp Pulse Resp B/P (MAP) Pulse Ox O2 Delivery O2 Flow Rate FiO2 02/18/18 08:00 98.4 75 16 107/64 (78) 95 02/18/18 05:05 18 02/17/18 23:58 Room Air 02/17/18 22:57 98.1 83 18 104/74 (84) 95 02/17/18 20:30 98.3 77 18 123/70 (87) 96 02/17/18 16:00 98.1 63 16 106/57 (73) 97 I/O 02/17/18 02/17/18 02/17/18 02/18/18 02/18/18 02/18/18 07:00 15:00 23:00 07:00 15:00 23:00 Intake Total 720 ml 720 ml 720 ml Output Total 250 ml 425 ml Balance 470 ml 720 ml 295 ml Intake Oral 720 ml 720 ml 720 ml Output Urine Total 250 ml 425 ml # Voids 2 4 2 # Bowel Movements 0 1 (Julian Gamino MD R3) Result Diagram: 02/18/18 0417 02/18/18 041 Objective Remarks GENERAL: Well-nourished, well-developed patient lying in bed, no acute distress. SKIN: Warm and well perfused, dressing c/d/i. CARDIOVASCULAR: Regular rate and rhythm without murmurs, gallops, or rubs. RESPIRATORY: CTA, Breath sounds equal bilaterally. No accessory muscle use. GASTROINTESTINAL: Abdomen soft, non-tender, nondistended EXTREMITIES: No cyanosis, or edema. NEUROLOGICAL: Awake, alert, and oriented x 3. Non-focal. Procedures ORIF L hip 02/06 (Julian Gamino MD R3) A/P Assessment and Plan Mr. Krishnan is a 52-year-old male with past medical history of alcohol abuse presenting with: (Julian Gamino MD R3) Attending Attestation Patient seen and examined. Case reviewed and discussed. Agree with plan of care as discussed with me and documented in the resident note. (Salome Jolly MD) Problem List: (1) Closed left hip fracture ICD Codes: S72.002A - Fracture of unspecified part of neck of left femur, initial encounter for closed fracture Status: Resolved Plan: POD #12 after ORIF, doing well [place] removed 02/16 -Orthopedics consulted, appreciate recommendations -S/p left hip reduction and intramedullary nail fixation on 02/06 -Patient cleared from ortho standpoint, plan to f/u as outpatient with Dr. Rudd in 2 wks -Recommend discharge POD #14 due to risk of infection -Pain well controlled -Percocet po for pain every 6 hours PRN -If pain not controlled on current medication regimen can consider giving Toradol 30 IV/IM every 6 hours for breakthrough -PT/OT following Patient to continue physical therapy 7 days a week (2) Alcohol abuse ICD Codes: F10.10 - Alcohol abuse, uncomplicated Status: Acute Plan: Patient admits to history of alcohol abuse and withdrawal. Chart review shows that patient was previously intubated for his withdrawal. CBC shows macrocytosis. Transaminitis. CIWA scores 0-1 for last 48 hrs -Continue multivitamin -Discontinue CIWA scoring (3) Abnormal LFTs ICD Codes: R79.89 - Abnormal LFTs Status: Chronic Plan: Likely due to combination of alcohol use and hepatitis C Gallbladder ultrasound on 02/06 shows echogenic hepatic parenchyma (likely steatosis). No focal abnormalities -LFTs stable -Will continue to monitor -Hepatitis panel is positive for hepatitis C, see below for plan (4) Hepatitis C antibody test positive ICD Codes: R76.8 - Other specified abnormal immunological findings in serum Status: Chronic Plan: Hepatitis C IgG antibody reactive on 02/06. Patient informed of this result on 02/07. He was unaware of this diagnosis. He has a distant history of IVDU, but previous testing was negative for hepatitis. He understands the prognosis of this disease and the consequences if he does not stop drinking alcohol. Item Value Date Time Hepatitis C RNA Genotype 1b 02/07/182024 Hepatitis C RNA (PCR) IUs/ml 398781 IU/mL H 02/07/182024 Hepatitis C RNA (PCR) log IUs/ml 5.93 H 02/07/182024 - f/u with GI as outpatient for hepatitis C treatment evaluation (5) FEN Status: Acute Plan: Fluids: per PO Electrolytes: Continue to monitor and replete as needed. Nutrition: Regular DVT Prophylaxis: Early ambulation. Bilateral SCDs. Lovenox 30 mg sq 24h Dispo: Patient homeless with non-hygienic living situation and risk of post-op infection, anticipate discharge POD#14 (recommended by ortho) once incision is healed to decrease risk of infection given living conditions. -Case management consulted and aware of patients barrier to discharge. Patient is homeless and does not have a state ID thus does not qualify any [facility] discharge placement. (Julian Gamino MD R3) Problem Qualifiers (1) Closed left hip fracture: Qualified Codes: S72.002A - Fracture of unspecified part of neck of left femur , initial encounter for closed fracture Julian Gamino MD R3 February 18, 2018 13:18 Salome Jolly MD February 20, 2018 18:24
--- NOTE | 2018-02-18 14:51 | RADRPT ---
EXAM DATE/TIME: 02/18/2018 14:39 [place] COMPARISON: No previous studies available for comparison. INDICATIONS : Left hip pain post ORIF on 02/13/2018. MEDICAL HISTORY : Hypertension. Gastroesophageal reflux disease. Neck pain. Gastroparesis. Inguinal hernia. Liver disea se. Depression. Anxiety. SURGICAL HISTORY : Appendectomy. Cervical fusion. Left inguinal hernia repair. ORIF left hip ENCOUNTER: Subsequent ACUITY: 4 - 6 days PAIN SCORE: 9/10 LOCATION: Left hip/pelvis FINDINGS: Status post internal fixation for a fracture involving the proximal left femur. There is good alignme nt and position of the fracture fragments. Hardware is grossly intact. No joint dislocation. CONCLUSION: Good position and alignment. Daniel Lopez MD on February 18, 2018 at 14:49 Board Certified Radiologist. This report was verified electronically.
[2018-02-18 16:00] VITALS: BP 125/67; PULSE 79; RESP 16; TEMP 98.8; O2SAT 97
[2018-02-18 19:45] VITALS: BP 104/62; PULSE 94; RESP 18; TEMP 98.1; O2SAT 95
[2018-02-18] MEDS: REMOVE OLD PATCH T-DERMAL SCH (20:14)
[2018-02-19 00:01] VITALS: BP 115/71; PULSE 85; RESP 18; TEMP 98.8; O2SAT 97
[2018-02-19] MEDS: oxyCODONE/ACETAMINOPHEN 10 MG/325 MG TAB PO PRN (00:30)
[2018-02-19] MEDS: SODIUM CHLOR 0.9% 1000 ML INJ 1,000 ML IV SCH ×2 (03:59→15:06)
[2018-02-19 08:00] VITALS: BP 115/72; PULSE 68; RESP 16; TEMP 98.7; O2SAT 97
[2018-02-19] MEDS: MULTIVITAMINS/MINERALS THERAPEUTIC TAB PO SCH (09:00)
[2018-02-19] MEDS: CHOLECALCIFEROL (VIT D3) 5000 UNIT CAP PO SCH (09:00)
[2018-02-19] MEDS: DOCUSATE SODIUM 50 MG/SENNA 8.6 MG TAB PO SCH ×2 (09:00→21:11)
[2018-02-19] MEDS: CALCIUM/VITAMIN D 250 MG/125 U TAB PO SCH ×3 (09:00→18:00)
[2018-02-19] MEDS: SODIUM CHLORIDE 0.9% FLUSH 10 ML FLUSH IV FLUSH SCH ×2 (09:00→21:00)
--- NOTE | 2018-02-19 11:03 | PD.ORT.PN ---
Subjective Subjective Remarks Resting comfortably with no new complaints Objective Vitals Vital Signs Date Time Temp Pulse Resp B/P (MAP) Pulse Ox O2 Delivery O2 Flow Rate FiO2 02/19/18 08:00 98.7 68 16 115/72 (86) 97 02/19/18 01:10 18 02/19/18 00:01 98.8 85 18 115/71 (86) 97 02/18/18 22:21 Room Air 02/18/18 19:45 98.1 94 18 104/62 (76) 95 02/18/18 16:00 98.8 79 16 125/67 (86) 97 02/18/18 12:00 97.9 91 16 106/64 (78) 99 I/O 02/18/18 02/18/18 02/18/18 02/19/18 02/19/18 02/19/18 07:00 15:00 23:00 07:00 15:00 23:00 Intake Total 720 ml 720 ml 420 ml Output Total 425 ml 350 ml Balance 295 ml 720 ml 70 ml Intake Oral 720 ml 720 ml 420 ml Output Urine Total 425 ml 350 ml # Voids 2 3 1 # Bowel Movements 1 Result Diagram: 02/18/18 0417 02/18/18 0417 Imaging Last 24 hours Impressions Chest X-Ray 02/05/18 1609 Signed Impressions: Service Date/Time: January 16:14 - CONCLUSION: 1. Chronic osseous changes with widening of the right a.c. joint and an old healed fracture deformity of the posterolateral aspect of the right seventh rib. No acute osseous injury. 2. Lungs are clear Pepito Khoury MD Pelvis X-Ray 02/05/18 0857 Signed Impressions: Service Date/Time: January 14:32 - CONCLUSION: Intertrochanteric fracture of the left hip. Shaun Copeland MD Femur X-Ray 02/05/18 6068 Signed Impressions: Service Date/Time: January 14:32 - CONCLUSION: Intertrochanteric fracture left hip. Otherwise intact left femur. Advanced arthropathy of the medial joint compartment of the knee. Shaun Copeland MD Objective Remarks Left lower extremity: Incisions healing well. Josi have been removed. He has mild swelling. Distally he has intact sensation with good capillary refills. He has active dorsiflexion and plantarflexion of the foot Assessment & Plan Assessment and Plan 1) Left Intertroch Hip Fx s/p IMN - POD 14 -doing well. no c/o -daily dressing changes -CM discharge planning. -WBAT -lovenox -scripts on chart -f/u with [facility] or [facility] in 1 month -Discharge plan is to be formalized. Patient lives in a shed behind a [employer]. If safe plan is secured may be discharged with a walker. Jl Alston Jr. February 19, 2018 11:03
--- NOTE | 2018-02-19 11:26 | HHI.FPPN ---
Subjective Remarks Patient seen and examined this morning. No acute events overnight. Patient stated is well his pain is well tolerated. Incisional scar healing well. (Luiz Fowelr MD, R1) Objective Vitals Vital Signs Date Time Temp Pulse Resp B/P (MAP) Pulse Ox O2 Delivery O2 Flow Rate FiO2 02/19/18 08:00 98.7 68 16 115/72 (86) 97 02/19/18 01:10 18 02/19/18 00:01 98.8 85 18 115/71 (86) 97 02/18/18 22:21 Room Air 02/18/18 19:45 98.1 94 18 104/62 (76) 95 02/18/18 16:00 98.8 79 16 125/67 (86) 97 02/18/18 12:00 97.9 91 16 106/64 (78) 99 I/O 02/18/18 02/18/18 02/18/18 02/19/18 02/19/18 02/19/18 07:00 15:00 23:00 07:00 15:00 23:00 Intake Total 720 ml 720 ml 420 ml Output Total 425 ml 350 ml Balance 295 ml 720 ml 70 ml Intake Oral 720 ml 720 ml 420 ml Output Urine Total 425 ml 350 ml # Voids 2 3 1 # Bowel Movements 1 (Luiz Fowler MD, R1) Result Diagram: 02/18/1841602/18/18416 Objective Remarks GENERAL: Well-nourished, well-developed patient lying in bed, no acute distress. SKIN: Warm and well perfused, dressing c/d/i. CARDIOVASCULAR: Regular rate and rhythm without murmurs, gallops, or rubs. RESPIRATORY: CTA, Breath sounds equal bilaterally. No accessory muscle use. GASTROINTESTINAL: Abdomen soft, non-tender, nondistended EXTREMITIES: No cyanosis, or edema. NEUROLOGICAL: Awake, alert, and oriented x 3. Non-focal. Procedures ORIF L hip 02/06 (Luiz Fowler MD, R1) A/P Assessment and Plan Mr. Krishnan is a 52-year-old male with past medical history of alcohol abuse presenting with: (Luiz Fowler MD, R1) Attending Attestation Patient seen and examined. Case reviewed and discussed. Agree with plan of care as discussed with me and documented in the resident note. (Verzal,Salome R. MD) Problem List: (1) Closed left hip fracture ICD Codes: S72.002A - Fracture of unspecified part of neck of left femur, initial encounter for closed fracture Status: Resolved Plan: POD #13 after ORIF, doing well [place] removed 02/16 -Orthopedics consulted, appreciate recommendations -S/p left hip reduction and intramedullary nail fixation on 02/06 -Patient cleared from ortho standpoint, plan to f/u as outpatient with Dr. Rudd in 2 wks -Recommend discharge POD #14 due to risk of infection -last Xerelto dose tomorrow prior to discharge 02/20 and pt to be discharged on asa 325mg QD x 14 days, per ortho recs -Pain well controlled -tylenol -Toradol 30 IV/IM every 6 hours for breakthrough -PT/OT following Patient to continue physical therapy 7 days a week (2) Alcohol abuse ICD Codes: F10.10 - Alcohol abuse, uncomplicated Status: Acute Plan: Patient admits to history of alcohol abuse and withdrawal. Chart review shows that patient was previously intubated for his withdrawal. CBC shows macrocytosis. Transaminitis. CIWA scores low -Continue multivitamin -Discontinue CIWA scoring (3) Abnormal LFTs ICD Codes: R79.89 - Abnormal LFTs Status: Chronic Plan: Likely due to combination of alcohol use and hepatitis C Gallbladder ultrasound on 02/06 shows echogenic hepatic parenchyma (likely steatosis). No focal abnormalities -LFTs stable -Will continue to monitor -Hepatitis panel is positive for hepatitis C, see below for plan (4) Hepatitis C antibody test positive ICD Codes: R76.8 - Other specified abnormal immunological findings in serum Status: Chronic Plan: Hepatitis C IgG antibody reactive on 02/06. Patient informed of this result on 02/07. He was unaware of this diagnosis. He has a distant history of IVDU, but previous testing was negative for hepatitis. He understands the prognosis of this disease and the consequences if he does not stop drinking alcohol. Item Value Date Time Hepatitis C RNA Genotype 1b 02/07/182024 Hepatitis C RNA (PCR) IUs/ml 580042 IU/mL H 02/07/182024 Hepatitis C RNA (PCR) log IUs/ml 5.93 H 02/07/182024 - f/u with GI as outpatient for hepatitis C treatment evaluation (5) FEN Status: Acute Plan: Fluids: per PO Electrolytes: Continue to monitor and replete as needed. Nutrition: Regular DVT Prophylaxis: Early ambulation. Bilateral SCDs. Lovenox 30 mg sq 24h Dispo: Patient homeless with non-hygienic living situation and risk of post-op infection, anticipate discharge POD#14 (recommended by ortho) once incision is healed to decrease risk of infection given living conditions. -Case management consulted and aware of patients barrier to discharge. Patient is homeless and does not have a state ID thus does not qualify any [facility] discharge placement. (Luiz Fowler MD, R1) Problem Qualifiers (1) Closed left hip fracture: Qualified Codes: S72.002A - Fracture of unspecified part of neck of left femur , initial encounter for closed fracture Luiz Fowler MD, R1 February 19, 2018 11:26 Salome Jolly MD February 20, 2018 18:11
[2018-02-19] MEDS ORDERED: ASPI-183 PO (11:29)
[2018-02-19 12:00] VITALS: BP 125/71; PULSE 69; RESP 16; TEMP 98.7; O2SAT 96
[2018-02-19] MEDS: ACETAMINOPHEN 325 MG TAB PO PRN ×2 (12:12→21:11)
[2018-02-19] MEDS: NICOTINE 14 MG/24 HR PATCH T-DERMAL SCH (12:15)
[2018-02-19] MEDS: ENOXAPARIN SODIUM 30 MG/0.3 ML SYRINGE SQ SCH (12:16)
[2018-02-19 15:23] VITALS: BP 121/68; PULSE 77; RESP 18; TEMP 98.3; O2SAT 97
[2018-02-19 20:00] VITALS: BP 133/68; PULSE 93; RESP 17; TEMP 98.1; O2SAT 98
[2018-02-19] MEDS: REMOVE OLD PATCH T-DERMAL SCH (21:12)
[2018-02-20 00:01] VITALS: BP 109/67; PULSE 83; RESP 17; TEMP 98; O2SAT 99
[2018-02-20] MEDS: SODIUM CHLOR 0.9% 1000 ML INJ 1,000 ML IV SCH ×3 (00:12→10:44)
[2018-02-20] MEDS: ACETAMINOPHEN 325 MG TAB PO PRN ×5 (01:27→16:55)
[2018-02-20] MEDS: SODIUM CHLORIDE 0.9% FLUSH 10 ML FLUSH IV FLUSH SCH (07:44)
[2018-02-20] MEDS: NICOTINE 14 MG/24 HR PATCH T-DERMAL SCH (07:47)
[2018-02-20] MEDS: ENOXAPARIN SODIUM 30 MG/0.3 ML SYRINGE SQ SCH (07:49)
[2018-02-20] MEDS: CALCIUM/VITAMIN D 250 MG/125 U TAB PO SCH ×3 (07:50→16:55)
[2018-02-20] MEDS: SENNOSIDES 8.6 MG TAB PO PRN (07:50)
[2018-02-20] MEDS: MAGNESIUM HYDROXIDE SUSP 30 ML CUP PO PRN (07:51)
[2018-02-20] MEDS: CHOLECALCIFEROL (VIT D3) 5000 UNIT CAP PO SCH (07:51)
[2018-02-20] MEDS: DOCUSATE SODIUM 50 MG/SENNA 8.6 MG TAB PO SCH (07:51)
[2018-02-20 08:00] VITALS: BP 117/70; PULSE 73; RESP 15; TEMP 98.4; O2SAT 97
[2018-02-20 11:46] VITALS: BP 109/63; PULSE 84; RESP 16; TEMP 98.2; O2SAT 98
--- NOTE | 2018-02-20 15:12 | HHI.FPPN ---
Subjective Remarks Patient seen and examined at bedside this morning. No acute events overnight. Patient is ready for discharge today. Stated he would need help obtaining asa prescription. (Luiz Fowler MD, R1) Objective Vitals Vital Signs Date Time Temp Pulse Resp B/P (MAP) Pulse Ox O2 Delivery O2 Flow Rate FiO2 02/20/18 11:46 98.2 84 16 109/63 (78) 98 02/20/18 08:00 98.4 73 15 117/70 (86) 97 02/20/18 07:37 Room Air 02/20/18 00:01 98.0 83 17 109/67 (81) 99 02/19/18 20:00 98.1 93 17 133/68 (89) 98 02/19/18 15:23 98.3 77 18 121/68 (85) 97 I/O 02/19/18 02/19/18 02/19/18 02/20/18 02/20/18 02/20/18 06:59 14:59 22:59 06:59 14:59 22:59 Intake Total 420 ml 120 ml 480 ml Output Total 350 ml 700 ml Balance 70 ml 120 ml -220 ml Intake Oral 420 ml 120 ml 480 ml Output Urine Total 350 ml 700 ml # Voids 1 3 # Bowel Movements 0 0 (Luiz Fowler MD, R1) Result Diagram: 02/18/1841602/18/18416 Objective Remarks GENERAL: Well-nourished, well-developed patient lying in bed, no acute distress. SKIN: Warm and well perfused, incision well healed CARDIOVASCULAR: Regular rate and rhythm without murmurs, gallops, or rubs. RESPIRATORY: CTA, Breath sounds equal bilaterally. No accessory muscle use. GASTROINTESTINAL: Abdomen soft, non-tender, nondistended EXTREMITIES: No cyanosis, or edema. NEUROLOGICAL: Awake, alert, and oriented x 3. Non-focal. Procedures ORIF L hip 02/06 (Luiz Fowler MD, R1) A/P Assessment and Plan Mr. Krishnan is a 52-year-old male with past medical history of alcohol abuse presenting with: (Luiz Fowler MD, R1) Attending Attestation Patient seen and examined. Case reviewed and discussed Agree with plan of care as discussed with me and documented in the resident note. (Salome Jolly MD) Problem List: (1) Closed left hip fracture ICD Codes: S72.002A - Fracture of unspecified part of neck of left femur, initial encounter for closed fracture Status: Resolved Plan: POD #14 after ORIF, incision healed well [place] removed 02/16 -Orthopedics consulted, appreciate recommendations -S/p left hip reduction and intramedullary nail fixation on 02/06 -Patient cleared from ortho standpoint, plan to f/u as outpatient with Dr. Rudd in 2 wks -Recommend discharge POD #14 due to risk of infection -last Xerelto dose today prior to discharge 02/20 and pt to be discharged on asa 325mg QD x 14 days, per ortho recs - patient has done well with physical therapy will be discharged with wheeled walker and does not require PT at home -Pain well controlled -tylenol (2) Alcohol abuse ICD Codes: F10.10 - Alcohol abuse, uncomplicated Status: Acute Plan: Patient admits to history of alcohol abuse and withdrawal. Chart review shows that patient was previously intubated for his withdrawal. CBC shows macrocytosis. Transaminitis. CIWA scores low -Continue multivitamin -Discontinue CIWA scoring (3) Abnormal LFTs ICD Codes: R79.89 - Abnormal LFTs Status: Chronic Plan: Likely due to combination of alcohol use and hepatitis C Gallbladder ultrasound on 02/06 shows echogenic hepatic parenchyma (likely steatosis). No focal abnormalities -LFTs stable -Will continue to monitor -Hepatitis panel is positive for hepatitis C, see below for plan (4) Hepatitis C antibody test positive ICD Codes: R76.8 - Other specified abnormal immunological findings in serum Status: Chronic Plan: Hepatitis C IgG antibody reactive on 02/06. Patient informed of this result on 02/07. He was unaware of this diagnosis. He has a distant history of IVDU, but previous testing was negative for hepatitis. He understands the prognosis of this disease and the consequences if he does not stop drinking alcohol. Item Value Date Time Hepatitis C RNA Genotype 1b 02/07/182024 Hepatitis C RNA (PCR) IUs/ml 219931 IU/mL H 02/07/182024 Hepatitis C RNA (PCR) log IUs/ml 5.93 H 02/07/182024 - f/u with GI as outpatient for hepatitis C treatment evaluation (5) FEN Status: Acute Plan: Fluids: per PO Electrolytes: Continue to monitor and replete as needed. Nutrition: Regular DVT Prophylaxis: Early ambulation. Bilateral SCDs. Lovenox 30 mg sq 24h Dispo: Patient homeless with non-hygienic living situation and risk of post-op infection, anticipate discharge POD#14 (recommended by ortho) once incision is healed to decrease risk of infection given living conditions. -Case management consulted and aware of patients barrier to discharge. Patient is homeless and does not have a state ID thus does not qualify any [facility] discharge placement. (Luiz Fowler MD, R1) Problem Qualifiers (1) Closed left hip fracture: Qualified Codes: S72.002A - Fracture of unspecified part of neck of left femur , initial encounter for closed fracture Luiz Fowler MD, R1 February 20, 2018 15:12 Salome Jolly MD February 21, 2018 10:05
[2018-02-20] MEDS ORDERED: ACET325T15 PO (15:15)
--- NOTE | 2018-02-20 16:12 | HHI.DCPOC ---
Discharge Care Plan Diagnosis: (1) Altered mental status (2) Polysubstance abuse (3) Alcohol intoxication (4) Alcohol abuse (5) Hepatitis C antibody test positive (6) Abnormal LFTs (7) Closed left hip fracture Goals to Promote Your Health * To prevent worsening of your condition and complications * To maintain your health at the optimal level Directions to Meet Your Goals Take your medications as prescribed Follow your dietary instruction Follow activity as directed Keep your appointments as scheduled Take your immunizations and boosters as scheduled If your symptoms worsen call your PCP, if no PCP go to Urgent Care Center or Emergency Room Smoking is Dangerous to Your Health. Avoid second hand smoke Call the 24-hour hour crisis hotline for domestic abuse at Luiz Fowler MD, R1 February 20, 2018 16:11
== END 2018-02-20 17:57 | disposition home or self-care (01) | DRG 481 ==
LOC: NEPE 13:45 → NEDA 16:55 → N06A 20:55
PROVIDERS: ADMIT Family Medicine; ATTEND Family Medicine
PROC: 0QS706Z Reposition Left Upper Femur with Intramedullary Internal Fixation Device, Open Approach (ICD-10-PCS; principal; 2018-02-06 08:30)
PROC: 30233N1 Transfusion of Nonautologous Red Blood Cells into Peripheral Vein, Percutaneous Approach (ICD-10-PCS; 2018-02-07)
DX: S72.142A Displaced intertrochanteric fracture of left femur, initial encounter for closed fracture (principal); E87.1 Hypo-osmolality and hyponatremia; D69.6 Thrombocytopenia, unspecified; I10 Essential (primary) hypertension; K31.84 Gastroparesis; V18.0XXA Pedal cycle driver injured in noncollision transport accident in nontraffic accident, initial encounter; Y93.55 Activity, bike riding; Y92.009 Unspecified place in unspecified non-institutional (private) residence as the place of occurrence of the external cause; F17.210 Nicotine dependence, cigarettes, uncomplicated; F41.9 Anxiety disorder, unspecified; F32.9 Major depressive disorder, single episode, unspecified; Z82.0 Family history of epilepsy and other diseases of the nervous system; Z80.8 Family history of malignant neoplasm of other organs or systems; F19.90 Other psychoactive substance use, unspecified, uncomplicated; F10.229 Alcohol dependence with intoxication, unspecified; D53.9 Nutritional anemia, unspecified; R74.0 Nonspecific elevation of levels of transaminase and lactic acid dehydrogenase [LDH]; D75.89 Other specified diseases of blood and blood-forming organs; B19.20 Unspecified viral hepatitis C without hepatic coma; E87.6 Hypokalemia; Z79.82 Long term (current) use of aspirin; Z59.0 Homelessness
CPT/HCPCS: 36430; 71045; 72170; 73502; 73552; 76000; 76705; 80053; 80074; 81001; 82248; 82272; 82306; 82550; 85014; 85018; 85025; 85027; 85610; 85730; 86850; 86900; 86901; 86920; 87015; 87116; 87206; 87522; 87902; 93005; 93926; 96374; 96375; C1713; J0690; J1100; J1170; J1200; J1580; J1650; J1885; J2060; J2175; J2250; J2270; J2405; J2710; J3010; J3370; J3411; J7030; J7040; J7050; P9016

== ENCOUNTER 2018-02-23 23:40 | Emergency (ER) | payer SELFPAY ==
[2018-02-24 01:03] LABS: AUTOMATED NEUTROPHIL # 3.6 TH/MM3 (1.8-7.7); BASOPHIL # 0.2 TH/MM3 (0-0.2); BASOPHIL % 2.1 % (0.0-2.0); EOSINOPHIL # 0.4 TH/MM3 (0-0.4); EOSINOPHIL % 3.3 % (0.0-4.0); HEMATOCRIT 38.7 % (39.0-51.0); HEMOGLOBIN 12.9 GM/DL (13.0-17.0); LYMPH % 56.7 % (9.0-44.0); LYMPHOCYTE # 6.7 TH/MM3 (1.0-4.8); MEAN CELL VOLUME 100.1 FL (80.0-100.0); MEAN CORPUSCULAR HEMOGLOBIN 33.3 PG (27.0-34.0); MEAN CORPUSCULAR HGB CONC 33.3 % (32.0-36.0); MEAN PLATELET VOLUME 8.2 FL (7.0-11.0); MONO % 7.7 % (0.0-8.0); MONOCYTE # 0.9 TH/MM3 (0-0.9); NEUT % 30.2 % (16.0-70.0); PLATELET COUNT 433 TH/MM3 (150-450); RED BLOOD COUNT 3.87 MIL/MM3 (4.50-5.90); RED CELL DISTRIBUTION WIDTH 16.2 % (11.6-17.2); WHITE BLOOD COUNT 11.8 TH/MM3 (4.0-11.0)
[2018-02-24 01:08] LABS: HEMO FLAGS AUTO DIFF
[2018-02-24 01:10] LABS: CHLORIDE 106 MEQ/L (98-107); POTASSIUM 4.2 MEQ/L (3.5-5.1); SODIUM (NA) 138 MEQ/L (136-145)
[2018-02-24 01:13] LABS: ANION GAP 7 MEQ/L (5-15); BICARBONATE 24.8 MEQ/L (21.0-32.0); BLOOD UREA NITROGEN 11 MG/DL (7-18); CALCIUM 8.9 MG/DL (8.5-10.1); GLUCOSE,RANDOM 96 MG/DL (74-106); MAGNESIUM 2.2 MG/DL (1.5-2.5)
[2018-02-24 01:16] LABS: CREATININE 0.78 MG/DL (0.60-1.30); GLOMERULAR FILTRATION RATE 104 ML/MIN (>89)
[2018-02-24 01:25] LABS: ALCOHOL 326 MG/DL (0-5)
[2018-02-24 01:29] LABS: EOSINOPHILS 2 % (0-4); LYMPHOCYTES 56 % (9-44); MONOCYTES 7 % (0-8); NEUTROPHIL # MANUAL DIFF 4.1 TH/MM3 (1.8-7.7); PLATELET ESTIMATE SMEAR NORMAL (NORMAL); PLATELET MORPHOLOGY NORMAL (NORMAL); POLYS (SEG NEUTROPHILS) 35 % (16-70); SCAN/DIFF FINAL DIFF MANUAL; WBC DIFF SAMPLE 100
[2018-02-24 02:26] LABS: BILIRUBIN, URINE NEG (NEG); BLOOD, URINE NEG (NEG); GLUCOSE,URINE NEG (NEG); KETONE, URINE NEG (NEG); NITRITE,URINE NEG (NEG); PH, URINE 5.5 (5.0-8.5); URINE COLOR YELLOW (YELLW/STRAW); URINE LEUKOCYTE ESTERASE NEG (NEG)
[2018-02-24 02:34] LABS: AMPHETAMINE, URINE NEG (NEG); BARBITURATES, URINE NEG (NEG); BENZODIAZEPINE,URINE NEG (NEG); CANNABINOIDS, URINE POS (NEG); COCAINE, URINE NEG (NEG)
[2018-02-24 02:37] LABS: COMMENT (UR) CULT NOT INDICATED; CULTURE IF INDICATED CULT NOT INDICATED; RBC, URINE 0-2 /hpf (0-3); SQUAMOUS EPITHELIAL CELL URINE 0-5 /hpf (0-5); WBC, URINE 0-2 /hpf (0-5)
[2018-02-24] MEDS: SODIUM CHLORIDE 0.9% FLUSH 10 ML FLUSH IVF (04:45)
== END 2018-02-24 05:29 | disposition home or self-care (01) ==
LOC: PHED 02-24 05:29
DX: F10.129 Alcohol abuse with intoxication, unspecified (principal); Y90.8 Blood alcohol level of 240 mg/100 ml or more; S70.02XA Contusion of left hip, initial encounter; W19.XXXA Unspecified fall, initial encounter; R51 Headache; M54.2 Cervicalgia; F41.9 Anxiety disorder, unspecified; F32.9 Major depressive disorder, single episode, unspecified; K21.9 Gastro-esophageal reflux disease without esophagitis
CPT/HCPCS: 70450; 72125; 73501; 73552; 80048; 80307; 81001; 83735; 85007; 85027; 86850; 86900; 86901; 99285

== ENCOUNTER 2018-02-26 01:40 | Emergency (ER) | payer SELFPAY ==
[~2018-02-26] VITALS: Ht 167.6 cm; Wt 70.0 kg
[~2018-02-26 01:40] MED LIST changes: +ACET325T15 PO; +ASPI-183 PO; -TRAM50TA PO; +WALKER/ADULT/FO1 MIS
[2018-02-26 01:57] VITALS: BP 131/82; PULSE 98; TEMP 98.3; O2SAT 100
[2018-02-26 05:53] VITALS: BP 138/85; PULSE 85; RESP 16; O2SAT 98
--- NOTE | 2018-02-26 06:10 | PD ---
HPI Chief Complaint: Pain: Acute or Chronic Time Seen by Provider: 03:25 Travel History International Travel<30 days: No Contact w/Intl Traveler<30days: No Traveled to known affect area: No History of Present Illness HPI Patient is intoxicated sleeping in triage in the waiting room mildly agitated brought into the exam room and falls asleep patient has no complaint vitals within normal limit he has been on the monitor tech heart rate 95 sat is 100 % BP is 130/60 in the a.m. he wakes he is able to ambulate he is discharged home [facility] Past Medical History Hx Anticoagulant Therapy: No Arthritis: No Asthma: No Autoimmune Disease: No Blood Disorders: No Anxiety: Yes Depression: Yes Heart Rhythm Problems: No Cancer: No Cardiovascular Problems: Yes High Cholesterol: No Chemotherapy: No Chest Pain: No Congestive Heart Failure: No COPD: No Cerebrovascular Accident: No Diabetes: No Diminished Hearing: No Endocrine: No Gastrointestinal Disorders: Yes (GASTROPARESIS) GERD: Yes Genitourinary: No Headaches: No Hiatal Hernia: No Heparin Induced Thrombocytopen: No Hypertension: Yes Immune Disorder: No Inguinal Hernia: Yes (REPAIRED) Implanted Vascular Access Dvce: No Insomnia: No Kidney Stones: No Musculoskeletal: Yes Neurologic: No Psychiatric: Yes (ALCOHOL ABUSE) Reproductive: No Respiratory: No Immunizations Current: Yes Migraines: No Pneumonia: Yes Radiation Therapy: No Renal Failure: No Seizures: No Sickle Cell Disease: No Sleep Apnea: No Thyroid Disease: No Ulcer: No Tetanus Vaccination: < 5 Years PNEUMOCCOCAL Vaccine (Year): 2 Past Surgical History Abdominal Surgery: Yes (LEFT INGUINAL HERNIA REPAIR) AICD: No Appendectomy: Yes Arteriovenous Shunt: No Body Medical Devices: CERVICAL FUSION Cardiac Surgery: No Ear Surgery: No Endocrine Surgery: No Eye Surgery: No Genitourinary Surgery: No Gynecologic Surgery: No Hysterectomy: No Insulin Pump: No Joint Replacement: No Neurologic Surgery: Yes (CERVICAL SURGERY WITH PLATE) Oral Surgery: No Pacemaker: No Thoracic Surgery: No Other Surgery: Yes (L ING HERNIA REPAIR) Social History Alcohol Use: Yes ("As much as I can get" ) Tobacco Use: Yes (/ PPD) Substance Use: Yes (MARIJUANA) Allergies-Medications (Allergen,Severity, Reaction): Coded Allergies: No Known Allergies (Verified Allergy, Unknown, 02/05/18) Reported Meds & Prescriptions Reported Meds & Active Scripts Active Eq Acetaminophen (Acetaminophen) 325 Mg Tab 650 Mg PO Q6HR PRN Aspirin 325 Mg Tab 325 Mg PO DAILY 14 Days Walker/Adult/Folding (Device) 1 Mis Mis Ea .XX DIRECTED Physical Exam Narrative GENERAL: loud irritable when awaken in waiting room chair and wheelchaired to exam room intox apppearance SKIN: Warm and dry. HEAD: Atraumatic. Normocephalic. no obvious head trauma on inspection EYES: Pupils equal and round. No scleral icterusmoist. NECK: Trachea midline. CARDIOVASCULAR: Regular rate and rhythm. RESPIRATORY: No accessory muscle use. GASTROINTESTINAL: Abdomen , nondistended. Hepatic and splenic margins not palpable. MUSCULOSKELETAL: Extremities No obvious deformities. NEUROLOGICAL: Awake irritable intoxucated Data Data Last Documented VS MDM Medical Decision Making Medical Screen Exam Complete: Yes Emergency Medical Condition: Yes Medical Record Reviewed: Yes Differential Diagnosis intoxiated and allowed to sleep , he has no obvious injury to head or body intox etoh vs polysubstance vs metabolic imbalance Narrative Course pt allowed to sleep and then in AM awake ambulates and is ready for discharge Diagnosis Primary Impression: Alcohol intoxication Disposition: 01 DISCHARGE HOME Condition: Stable Jame Rebollar MD February 26, 2018 06:10
[2018-02-26 06:44] VITALS: BP 125/75; TEMP 98.4
== END 2018-02-26 06:45 | disposition home or self-care (01) ==
LOC: PHED 01:40
DX: F10.129 Alcohol abuse with intoxication, unspecified (principal); F41.9 Anxiety disorder, unspecified; F32.9 Major depressive disorder, single episode, unspecified; K21.9 Gastro-esophageal reflux disease without esophagitis; I10 Essential (primary) hypertension; F17.200 Nicotine dependence, unspecified, uncomplicated; F12.90 Cannabis use, unspecified, uncomplicated; Z87.19 Personal history of other diseases of the digestive system; Z79.82 Long term (current) use of aspirin
CPT/HCPCS: 99281

== ENCOUNTER 2018-03-02 22:20 | Emergency (ER) | payer SELFPAY ==
[~2018-03-02] VITALS: Ht 167.6 cm; Wt 68.0 kg
[2018-03-02 22:20] VITALS: BP 152/98; PULSE 100; RESP 18; TEMP 97.6; O2SAT 99
--- NOTE | 2018-03-02 22:39 | PD ---
HPI Chief Complaint: Pain: Acute or Chronic Time Seen by Provider: 22:24 Travel History International Travel<30 days: No Contact w/Intl Traveler<30days: No Traveled to known affect area: No History of Present Illness HPI 52-year-old male complains of left hip pain. Patient status post ORIF left femoral neck fracture a month ago. Patient was discharged from [facility] about 10 days ago. Patient was given physical therapy and a walker and was advised to take aspirin 325 mg daily for 14 days and Tylenol for pain. Patient denies history of alcohol abuse. Patient unable to tell me whether he has been drinking any alcohol recently. Patient states that he is homeless and has increasing left hip pain today. Patient denies any headache. Patient denies any chest pain or shortness of breath. Patient denies abdominal pain. Patient denies any focal weakness or numbness of the extremity. Patient states that the pain is sharp pain localized to left hip. Patient denies any pain radiation. Patient is unable to tell me whether any new injury since discharge or not. PFSH Past Medical History Hx Anticoagulant Therapy: No Arthritis: No Asthma: No Autoimmune Disease: No Blood Disorders: No Anxiety: Yes Depression: Yes Heart Rhythm Problems: No Cancer: No Cardiovascular Problems: Yes High Cholesterol: No Chemotherapy: No Chest Pain: No Congestive Heart Failure: No COPD: No Cerebrovascular Accident: No Diabetes: No Diminished Hearing: No Endocrine: No Gastrointestinal Disorders: Yes (GASTROPARESIS) GERD: Yes Genitourinary: No Headaches: No Hiatal Hernia: No Heparin Induced Thrombocytopen: No Hypertension: Yes Immune Disorder: No Inguinal Hernia: Yes (REPAIRED) Implanted Vascular Access Dvce: No Insomnia: No Kidney Stones: No Musculoskeletal: Yes Neurologic: No Psychiatric: Yes (ALCOHOL ABUSE) Reproductive: No Respiratory: No Immunizations Current: Yes Migraines: No Pneumonia: Yes Radiation Therapy: No Renal Failure: No Seizures: No Sickle Cell Disease: No Sleep Apnea: No Thyroid Disease: No Ulcer: No PNEUMOCCOCAL Vaccine (Year): 2 Past Surgical History Abdominal Surgery: Yes (LEFT INGUINAL HERNIA REPAIR) AICD: No Appendectomy: Yes Arteriovenous Shunt: No Body Medical Devices: CERVICAL FUSION Cardiac Surgery: No Ear Surgery: No Endocrine Surgery: No Eye Surgery: No Genitourinary Surgery: No Gynecologic Surgery: No Hysterectomy: No Insulin Pump: No Joint Replacement: No Neurologic Surgery: Yes (CERVICAL SURGERY WITH PLATE) Oral Surgery: No Pacemaker: No Thoracic Surgery: No Other Surgery: Yes (L ING HERNIA REPAIR) Social History Alcohol Use: Yes ("As much as I can get" ) Tobacco Use: Yes (1/2 PPD) Substance Use: Yes (MARIJUANA) Allergies-Medications (Allergen,Severity, Reaction): Coded Allergies: No Known Allergies (Verified Allergy, Unknown, 02/05/18) Reported Meds & Prescriptions Reported Meds & Active Scripts Active Eq Acetaminophen (Acetaminophen) 325 Mg Tab 650 Mg PO Q6HR PRN Aspirin 325 Mg Tab 325 Mg PO DAILY 14 Days Walker/Adult/Folding (Device) 1 Mis Mis Ea .XX DIRECTED Review of Systems General / Constitutional: No: Fever Eyes: No: Visual changes HENT: No: Headaches Cardiovascular: No: Chest Pain or Discomfort Respiratory: No: Shortness of Breath Gastrointestinal: No: Abdominal Pain Genitourinary: No: Dysuria Musculoskeletal: Positive: Pain Skin: No Rash Neurologic: No: Weakness Psychiatric: No: Depression Endocrine: No: Polydipsia Hematologic/Lymphatic: No: Easy Bruising Physical Exam Narrative GENERAL: Well-nourished, well-developed patient. SKIN: Focused skin assessment warm/dry. HEAD: Normocephalic. EYES: No scleral icterus. No injection or drainage. NECK: Supple, trachea midline. No JVD or lymphadenopathy. CARDIOVASCULAR: Regular rate and rhythm without murmurs, gallops, or rubs. RESPIRATORY: Breath sounds equal bilaterally. No accessory muscle use. GASTROINTESTINAL: Abdomen soft, non-tender, nondistended. MUSCULOSKELETAL: No cyanosis, or edema. BACK: Nontender without obvious deformity. No CVA tenderness. Patient has mild to moderate tenderness on palpation lateral aspect of the left hip. full range of motion of left hip. Wounds healing well. No evidence of redness swelling deformity noted. Data Data Last Documented VS Vital Signs Date Time Temp Pulse Resp B/P (MAP) Pulse Ox O2 Delivery O2 Flow Rate FiO2 03/02/18 22:20 97.6 100 18 152/98 (116) 99 Orders Orders Hip, Uni(Ap&Lat) W Ap Pelvis (03/02/18 22:32) MDM Medical Decision Making Medical Screen Exam Complete: Yes Emergency Medical Condition: Yes Differential Diagnosis Differential diagnosis including acute on chronic left hip pain, sprain, fracture, dislocation. Narrative Course 52-year-old male with left hip pain. Status post ORIF left femoral neck fracture a month ago. History of alcohol abuse. Diagnosis Primary Impression: Hip strain Qualified Codes: S76.012A - Strain of muscle, fascia and tendon of left hip, initial encounter Patient Instructions: General Instructions Additional Instructions: Continue with aspirin and Tylenol for pain. Follow-up with local physician and orthopedist. Med/Other Pt SpecificInfo: No Meds Exist/No RX given Disposition: 01 DISCHARGE HOME Condition: Stable Parrish Lee MD March 02, 2018 22:39
--- NOTE | 2018-03-02 23:46 | RADRPT ---
EXAM DATE/TIME: 03/02/2018 22:42 [facility] COMPARISON: HIP LEFT (AP&LAT 2/3VWS) W AP PELVIS, February 18, 2018, 14:39. INDICATIONS : Left hip pain. MEDICAL HISTORY : None. SURGICAL HISTORY : ORIF left hip. ENCOUNTER: Initial ACUITY: 1 day PAIN SCORE: Non-responsive. LOCATION: Left hip. FINDINGS: Examination of the left hip was performed with AP Pelvis. Previous fracture proximal left femur with screw and floridalma fixation. Right hip appears intact. CONCLUSION: 1. Postoperative fixation proximal left femur. There is a slight increase in callus formation around the fracture since February 2. No new bony abnormality. Junior Torres MD on March 02, 2018 at 23:41 Board Certified Radiologist. This report was verified electronically.
[2018-03-03 06:14] VITALS: BP 107/80
== END 2018-03-03 06:18 | disposition home or self-care (01) ==
LOC: PHED 22:20
DX: S76.012A Strain of muscle, fascia and tendon of left hip, initial encounter (principal); F41.9 Anxiety disorder, unspecified; K21.9 Gastro-esophageal reflux disease without esophagitis; I10 Essential (primary) hypertension; F17.200 Nicotine dependence, unspecified, uncomplicated; F12.90 Cannabis use, unspecified, uncomplicated; X58.XXXA Exposure to other specified factors, initial encounter; Z59.0 Homelessness; Z87.19 Personal history of other diseases of the digestive system
CPT/HCPCS: 73502; 99283

== ENCOUNTER 2018-03-08 00:31 | Emergency (ER) | payer SELFPAY ==
[2018-03-08] VITALS (9 sets, daily range): BP systolic 104–132; BP diastolic 63–80; PULSE 89–107; RESP 12–16; TEMP 96.5; O2SAT 92–100
[2018-03-08] MEDS ORDERED: SODIUM CHLORIDE 0.9% FLUSH 10 ML FLUSH IV FLUSH PRN (01:00)
[2018-03-08] MEDS ORDERED: SODIUM CHLOR 0.9% 1000 ML INJ 1,000 ML IV ONE (01:00)
[2018-03-08 02:59] LABS: BLOOD UREA NITROGEN 5 MG/DL (7-18); CALCIUM 8.4 MG/DL (8.5-10.1); CREATININE 0.62 MG/DL (0.60-1.30); GLOMERULAR FILTRATION RATE 135 ML/MIN (>89); GLUCOSE,RANDOM 97 MG/DL (74-106); MAGNESIUM 1.8 MG/DL (1.5-2.5); SODIUM (NA) 137 MEQ/L (136-145)
[2018-03-08 03:00] LABS: BICARBONATE 30.8 MEQ/L (21.0-32.0); CHLORIDE 99 MEQ/L (98-107)
[2018-03-08 03:02] LABS: AUTOMATED NEUTROPHIL # 2.5 TH/MM3 (1.8-7.7); BASOPHIL % 0.5 % (0.0-2.0); EOSINOPHIL # 0.2 TH/MM3 (0-0.4); EOSINOPHIL % 2.6 % (0.0-4.0); HEMATOCRIT 37.6 % (39.0-51.0); HEMOGLOBIN 13.4 GM/DL (13.0-17.0); LYMPHOCYTE # 4.2 TH/MM3 (1.0-4.8); MEAN CORPUSCULAR HEMOGLOBIN 35.9 PG (27.0-34.0); MEAN CORPUSCULAR HGB CONC 35.5 % (32.0-36.0); MONO % 9.9 % (0.0-8.0); MONOCYTE # 0.8 TH/MM3 (0-0.9); PLATELET COUNT 151 TH/MM3 (150-450); RED BLOOD COUNT 3.73 MIL/MM3 (4.50-5.90); RED CELL DISTRIBUTION WIDTH 16.5 % (11.6-17.2); WHITE BLOOD COUNT 7.7 TH/MM3 (4.0-11.0)
[2018-03-08 03:03] LABS: INTERNATIONAL NORMALIZED RATIO 1.2 RATIO; PROTHROMBIN TIME - PATIENT 11.7 SEC (9.8-11.6)
[2018-03-08 03:06] LABS: BILIRUBIN, URINE NEG (NEG); BLOOD, URINE TRACE (NEG); GLUCOSE,URINE NEG (NEG); KETONE, URINE NEG (NEG); NITRITE,URINE NEG (NEG); PH, URINE 5.5 (5.0-8.5); URINE COLOR YELLOW (YELLW/STRAW); URINE LEUKOCYTE ESTERASE NEG (NEG)
[2018-03-08 03:13] LABS: SQUAMOUS EPITHELIAL CELL URINE 0-5 /hpf (0-5); WBC, URINE 0-2 /hpf (0-5)
--- NOTE | 2018-03-08 03:30 | RADRPT ---
EXAM DATE/TIME: 03/08/2018 02:59 [facility] COMPARISON: No previous studies available for comparison. INDICATIONS : Trauma. Fall. ETOH. MEDICAL HISTORY : None. SURGICAL HISTORY : Fusion, cervical. Troch nail. ENCOUNTER: Initial ACUITY: 1 day PAIN SCORE: Non-responsive. LOCATION: Bilateral chest FINDINGS: No focal consolidation or effusion. Tortuous aorta. Heart size normal. No pneumothorax. CONCLUSION: 1. No acute findings. Junior Torres MD on March 08, 2018 at 3:27 Board Certified Radiologist. This report was verified electronically.
--- NOTE | 2018-03-08 03:31 | RADRPT ---
EXAM DATE/TIME: 03/08/2018 02:59 [facility] COMPARISON: No previous studies available for comparison. INDICATIONS : Trauma. Fall. ETOH. MEDICAL HISTORY : None. SURGICAL HISTORY : Fusion, cervical.Troch nail. ENCOUNTER: Initial ACUITY: 1 day PAIN SCORE: Non-responsive. LOCATION: pelvis FINDINGS: Previous anselmo fixation proximal left femur. Bones osteopenic. No new fracture identified. CONCLUSION: 1. Anselmo fixation left femur. No acute bony abnormality. Junior Torres MD on March 08, 2018 at 3:29 Board Certified Radiologist. This report was verified electronically.
[2018-03-08] MEDS ORDERED: POTASSIUM CHLOR 10 MEQ PREMIX 100 ML IV ONE ×2 (04:00→06:45)
--- NOTE | 2018-03-08 06:29 | PD ---
HPI Chief Complaint: Alcohol/Drug Intoxication Time Seen by Provider: 06:23 Travel History International Travel<30 days: No Contact w/Intl Traveler<30days: No Traveled to known affect area: No History of Present Illness HPI 52-year-old male presents to the emergency department by EMS transport after reportedly being found on the sidewalk appearing intoxicated. According to document coordinator initial report patient was very uncooperative. No IV access and no glucose reported. No report of any obvious injuries. Patient has history of alcoholism and previous hip fracture. Patient here more cooperative but drowsy and poor historian. Patient does not report any pain at this time. Patient does admit to alcohol use. PFSH Past Medical History Narrative Medical Anxiety depression hypertension gastroparesis left inguinal herniorrhaphy left hip ORIF cervical fusion; alcohol use tobacco use marijuana use; nursing notes reviewed Medical History: Unable to Obtain Hx Anticoagulant Therapy: No Arthritis: No Asthma: No Autoimmune Disease: No Blood Disorders: No Anxiety: Yes Depression: Yes Heart Rhythm Problems: No Cancer: No Cardiovascular Problems: Yes High Cholesterol: No Chemotherapy: No Chest Pain: No Congestive Heart Failure: No COPD: No Cerebrovascular Accident: No Diabetes: No Diminished Hearing: No Endocrine: No Gastrointestinal Disorders: Yes (GASTROPARESIS) GERD: Yes Genitourinary: No Headaches: No Hiatal Hernia: No Heparin Induced Thrombocytopen: No Hypertension: Yes Immune Disorder: No Inguinal Hernia: Yes (REPAIRED) Implanted Vascular Access Dvce: No Insomnia: No Kidney Stones: No Musculoskeletal: Yes Neurologic: No Psychiatric: Yes (ALCOHOL ABUSE) Reproductive: No Respiratory: No Immunizations Current: Yes Migraines: No Pneumonia: Yes Radiation Therapy: No Renal Failure: No Seizures: No Sickle Cell Disease: No Sleep Apnea: No Thyroid Disease: No Ulcer: No Tetanus Vaccination: < 5 Years Influenza Vaccination: No PNEUMOCCOCAL Vaccine (Year): 2 Past Surgical History Surgical History: Unable to Obtain Abdominal Surgery: Yes (LEFT INGUINAL HERNIA REPAIR) AICD: No Appendectomy: Yes Arteriovenous Shunt: No Body Medical Devices: CERVICAL FUSION Cardiac Surgery: No Ear Surgery: No Endocrine Surgery: No Eye Surgery: No Genitourinary Surgery: No Gynecologic Surgery: No Hysterectomy: No Insulin Pump: No Joint Replacement: No Neurologic Surgery: Yes (CERVICAL SURGERY WITH PLATE) Oral Surgery: No Pacemaker: No Thoracic Surgery: No Other Surgery: Yes (L ING HERNIA REPAIR) Social History Alcohol Use: Yes ("Depends on how much michael I got" ) Tobacco Use: Yes (1/2 PPD) Substance Use: Yes (Marijuana occ ) Allergies-Medications (Allergen,Severity, Reaction): Coded Allergies: No Known Allergies (Verified Allergy, Unknown, 03/08/18) Reported Meds & Prescriptions Reported Meds & Active Scripts Active Eq Acetaminophen (Acetaminophen) 325 Mg Tab 650 Mg PO Q6HR PRN Aspirin 325 Mg Tab 325 Mg PO DAILY 14 Days Walker/Adult/Folding (Device) 1 Mis Mis Ea .XX DIRECTED Review of Systems ROS Limitations: Clinical Condition, Poor Historian Except as stated in HPI: all other systems reviewed are Neg Physical Exam Narrative GENERAL: Well-developed well-nourished disheveled male in no acute respiratory distress; slurred speech GCS 13 SKIN: Warm and dry. HEAD: Atraumatic. Normocephalic. EYES: Pupils equal and round reactive to light. No scleral icterus. No injection or drainage except for right eye crusting. No periorbital bony tenderness or step-off. ENT: No nasal bleeding or discharge. Mucous membranes pink and moist. NECK: Trachea midline. No JVD. CARDIOVASCULAR: Regular rate and rhythm. RESPIRATORY: No accessory muscle use. Clear to auscultation. Breath sounds equal bilaterally. GASTROINTESTINAL: Abdomen soft, non-tender, nondistended. Hepatic and splenic margins not palpable. MUSCULOSKELETAL: Extremities without clubbing, cyanosis, or edema. No obvious deformities. NEUROLOGICAL: Drowsiness. No obvious cranial nerve deficits. Motor grossly within normal limits. Five out of 5 muscle strength in the arms and legs. Normal speech. PSYCHIATRIC: Appropriate mood and affect; insight and judgment normal. Data Data Last Documented VS Vital Signs Date Time Temp Pulse Resp B/P (MAP) Pulse Ox O2 Delivery O2 Flow Rate FiO2 03/08/18 06:25 102 12 116/73 (87) 100 Room Air 03/08/18 05:40 4.00 03/08/18 00:45 96.5 Orders Orders Electrocardiogram (03/08/18 00:58) Ammonia (03/08/18 00:58) Basic Metabolic Panel (Bmp) (03/08/18 00:58) Complete Blood Count With Diff (03/08/18 00:58) Prothrombin Time / Inr (Pt) (03/08/18 00:58) Act Partial Throm Time (Ptt) (03/08/18 00:58) Ua Includes Microscopic (03/08/18 00:58) Chest, Single Ap (03/08/18 00:58) Ct Brain W/O Iv Contrast(Rout) (03/08/18 00:58) Blood Glucose (03/08/18 00:58) Ecg Monitoring (03/08/18 00:58) Iv Access Insert/Monitor (03/08/18 00:58) Oximetry (03/08/18 00:58) Sodium Chloride 0.9% Flush (Ns Flush) (03/08/18 01:00) Drug Screen, Random Urine (03/08/18 00:58) Alcohol (Ethanol) (03/08/18 00:58) Tylenol (Acetaminophen) (03/08/18 00:58) Salicylates (Aspirin) (03/08/18 00:58) Pelvis, Ap Only (Routine) (03/08/18 ) Magnesium (Mg) (03/08/18 00:58) Sodium Chlor 0.9% 1000 Ml Inj (Ns 1000 M (03/08/18 01:00) Potassium Chlor 10 Meq Premix (Kcl 10 Me (03/08/18 04:00) Ct Cerv Spine W/O Contrast (03/08/18 ) Potassium Chlor 10 Meq Premix (Kcl 10 Me (03/08/18 06:45) Potassium Chloride (Kcl) (03/08/18 06:45) Sodium Chlorid 0.9% 500 Ml Inj (Ns 500 M (03/08/18 07:00) Labs Laboratory Tests Test 03/08/18 01:10 03/08/18 01:40 03/08/18 03:47 Salicylates Level LESS THAN 1.7 MG/DL White Blood Count 7.7 TH/MM3 Red Blood Count 3.73 MIL/MM3 Hemoglobin 13.4 GM/DL Hematocrit 37.6 % Mean Corpuscular Volume 101.0 FL Mean Corpuscular Hemoglobin 35.9 PG Mean Corpuscular Hemoglobin Concent 35.5 % Red Cell Distribution Width 16.5 % Platelet Count 151 TH/MM3 Mean Platelet Volume 8.0 FL Neutrophils (%) (Auto) 32.0 % Lymphocytes (%) (Auto) 55.0 % Monocytes (%) (Auto) 9.9 % Eosinophils (%) (Auto) 2.6 % Basophils (%) (Auto) 0.5 % Neutrophils # (Auto) 2.5 TH/MM3 Lymphocytes # (Auto) 4.2 TH/MM3 Monocytes # (Auto) 0.8 TH/MM3 Eosinophils # (Auto) 0.2 TH/MM3 Basophils # (Auto) 0.0 TH/MM3 CBC Comment DIFF FINAL Differential Comment Prothrombin Time 11.7 SEC Prothromb Time International Ratio 1.2 RATIO Activated Partial Thromboplast Time 26.0 SEC Urine Color YELLOW Urine Turbidity CLEAR Urine pH 5.5 Urine Specific [place] LESS/EQUAL 1.005 Urine Protein NEG mg/dL Urine Glucose (UA) NEG mg/dL Urine Ketones NEG mg/dL Urine Occult Blood TRACE Urine Nitrite NEG Urine Bilirubin NEG Urine Urobilinogen 0.2 MG/DL Urine Leukocyte Esterase NEG Urine WBC 0-2 /hpf Urine Squamous Epithelial Cells 0-5 /hpf Blood Urea Nitrogen 5 MG/DL Creatinine 0.62 MG/DL Random Glucose 97 MG/DL Calcium Level 8.4 MG/DL Magnesium Level 1.8 MG/DL Sodium Level 137 MEQ/L Potassium Level 2.7 MEQ/L Chloride Level 99 MEQ/L Carbon Dioxide Level 30.8 MEQ/L Anion Gap 7 MEQ/L Estimat Glomerular Filtration Rate 135 ML/MIN Urine Opiates Screen NEG Acetaminophen Level LESS THAN 2.0 MCG/ML Urine Barbiturates Screen NEG Urine Amphetamines Screen NEG Urine Benzodiazepines Screen NEG Urine Cocaine Screen NEG Urine Cannabinoids Screen NEG Ethyl Alcohol Level 384 MG/DL Ammonia 29 MCMOL/L MDM Medical Decision Making Medical Screen Exam Complete: Yes Emergency Medical Condition: Yes Medical Record Reviewed: Yes Interpretation(s) CBC & BMP Diagram 03/08/18 01:40 Calcium Level 8.4 L, Magnesium Level 1.8 Vital Signs Date Time Temp Pulse Resp B/P (MAP) Pulse Ox O2 Delivery O2 Flow Rate FiO2 03/08/18 05:40 107 14 119/69 (86) 100 Nasal Cannula 4.00 03/08/18 04:04 93 12 120/70 (87) 100 Nasal Cannula 4.00 03/08/18 03:47 12 92 Nasal Cannula 3.00 03/08/18 03:35 91 14 118/80 (93) 96 Room Air 03/08/18 01:10 14 97 Room Air 03/08/18 00:49 Room Air 03/08/18 00:45 96.5 89 16 104/63 (77) 100 Last Impressions Chest X-Ray 03/08/18 0058 Signed Impressions: Service Date/Time: Thursday, March 08, 2018 02:59 - CONCLUSION: 1. No acute findings. Junior Torres MD Pelvis X-Ray 03/08/18 0000 Signed Impressions: Service Date/Time: Thursday, March 08, 2018 02:59 - CONCLUSION: 1. Anselmo fixation left femur. No acute bony abnormality. Junior Torres MD CT brain noncontrast per reading radiologist Dr. Junior Torres no acute intracranial abnormalities this is not able to be entered into the record at this time due to down time and delayed merger of report CT cervical spine per reading radiologist Dr. Junior Torres moderate degenerative change no acute abnormalities this is not entered into the medical record due to inability to emerge to charts due to prior downtime report is being read from PACS system Differential Diagnosis Alcohol intoxication, polysubstance ingestion, minor closed head injury, ICH, cervical spine sprain strain fracture central cord syndrome, hip fracture, electrolyte disturbance, anemia, seizure Narrative Course IV access obtained specimens collected and sent for resulting imaging studies ordered Patient identified to have hypokalemia patient given IV potassium replacement and IV fluids Patient intoxicated alcohol level 386 urine drug screen negative At 6 AM and patient resting comfortably sleeping off alcohol intoxication; patient complains "my eye is still crusting" does not report any visual disturbance or vision loss Patient receiving additional IV fluid bolus and potassium bolus IV Diagnosis Primary Impression: Alcohol intoxication Additional Impressions: Hypokalemia Conjunctivitis Referrals: [facility] 1 day Patient Instructions: General Instructions Additional Instructions: Increase fluid hydration Discontinue alcohol use follow-up with [facility] for detox programs Return to the emergency department for any concerns or change in condition Add potassium containing food and beverages to dietary intake Med/Other Pt SpecificInfo: Prescription(s) given Scripts Erythromycin Opth Oint (Erythromycin Opth Oint) 5 Mg/Gm Oint 1 APPLIC RIGHT EYE QID for Infection, #1 TUBE 0 Refills Prov: Maggie Arce MD 03/08/18 Maggie Arce MD March 08, 2018 06:29
[2018-03-08 06:35] LABS: ACETAMINOPHEN LESS THAN 2.0 MCG/ML (10.0-30.0)
[2018-03-08] MEDS ORDERED: POTASSIUM CHLORIDE 20 MEQ CONTROLLED RELEASE TAB PO ONE (06:45)
[2018-03-08] MEDS ORDERED: ERYTOIN10 RIGHT EYE (06:50)
[2018-03-08] MEDS ORDERED: SODIUM CHLORID 0.9% 500 ML INJ 500 ML IV ONE (07:00)
--- NOTE | 2018-03-08 07:55 | PD ---
Physical Exam Exam Limitations: Intoxication Narrative Received signout from Dr. Arce. Patient was brought in by [facility] secondary to being found on the sidewalk and appeared intoxicated. Patient is well-known to ER staff. He presented to the ER afebrile, slightly hypotensive, remaining vital signs stable. 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 Labs show decreased potassium and elevated EtOH level. 40 mEq KCl p.o. and 20 mEq IV and IV normal saline were ordered. CT head, C-spine, chest x-ray and pelvis x-ray showed no acute findings. Patient is sleeping comfortably in the emergency department upon my assessment. Awaiting sobriety and completion of potassium repletion. 0937: Patient is awake and ambulating in the emergency department. Will discharge. Data Data Last Documented VS Vital Signs Date Time Temp Pulse Resp B/P (MAP) Pulse Ox O2 Delivery O2 Flow Rate FiO2 03/08/18 08:30 93 12 132/74 (93) 100 Nasal Cannula 2.00 03/08/18 00:45 96.5 Orders Orders Electrocardiogram (03/08/18 00:58) Ammonia (03/08/18 00:58) Basic Metabolic Panel (Bmp) (03/08/18 00:58) Complete Blood Count With Diff (03/08/18 00:58) Prothrombin Time / Inr (Pt) (03/08/18 00:58) Act Partial Throm Time (Ptt) (03/08/18 00:58) Ua Includes Microscopic (03/08/18 00:58) Chest, Single Ap (03/08/18 00:58) Ct Brain W/O Iv Contrast(Rout) (03/08/18 00:58) Blood Glucose (03/08/18 00:58) Ecg Monitoring (03/08/18 00:58) Iv Access Insert/Monitor (03/08/18 00:58) Oximetry (03/08/18 00:58) Sodium Chloride 0.9% Flush (Ns Flush) (03/08/18 01:00) Drug Screen, Random Urine (03/08/18 00:58) Alcohol (Ethanol) (03/08/18 00:58) Tylenol (Acetaminophen) (03/08/18 00:58) Salicylates (Aspirin) (03/08/18 00:58) Pelvis, Ap Only (Routine) (03/08/18 ) Magnesium (Mg) (03/08/18 00:58) Sodium Chlor 0.9% 1000 Ml Inj (Ns 1000 M (03/08/18 01:00) Potassium Chlor 10 Meq Premix (Kcl 10 Me (03/08/18 04:00) Ct Cerv Spine W/O Contrast (03/08/18 ) Potassium Chlor 10 Meq Premix (Kcl 10 Me (03/08/18 06:45) Potassium Chloride (Kcl) (03/08/18 06:45) Sodium Chlorid 0.9% 500 Ml Inj (Ns 500 M (03/08/18 07:00) Labs Laboratory Tests Test 03/08/18 01:10 03/08/18 01:40 03/08/18 03:47 Salicylates Level LESS THAN 1.7 MG/DL White Blood Count 7.7 TH/MM3 Red Blood Count 3.73 MIL/MM3 Hemoglobin 13.4 GM/DL Hematocrit 37.6 % Mean Corpuscular Volume 101.0 FL Mean Corpuscular Hemoglobin 35.9 PG Mean Corpuscular Hemoglobin Concent 35.5 % Red Cell Distribution Width 16.5 % Platelet Count 151 TH/MM3 Mean Platelet Volume 8.0 FL Neutrophils (%) (Auto) 32.0 % Lymphocytes (%) (Auto) 55.0 % Monocytes (%) (Auto) 9.9 % Eosinophils (%) (Auto) 2.6 % Basophils (%) (Auto) 0.5 % Neutrophils # (Auto) 2.5 TH/MM3 Lymphocytes # (Auto) 4.2 TH/MM3 Monocytes # (Auto) 0.8 TH/MM3 Eosinophils # (Auto) 0.2 TH/MM3 Basophils # (Auto) 0.0 TH/MM3 CBC Comment DIFF FINAL Differential Comment Prothrombin Time 11.7 SEC Prothromb Time International Ratio 1.2 RATIO Activated Partial Thromboplast Time 26.0 SEC Urine Color YELLOW Urine Turbidity CLEAR Urine pH 5.5 Urine Specific [place] LESS/EQUAL 1.005 Urine Protein NEG mg/dL Urine Glucose (UA) NEG mg/dL Urine Ketones NEG mg/dL Urine Occult Blood TRACE Urine Nitrite NEG Urine Bilirubin NEG Urine Urobilinogen 0.2 MG/DL Urine Leukocyte Esterase NEG Urine WBC 0-2 /hpf Urine Squamous Epithelial Cells 0-5 /hpf Blood Urea Nitrogen 5 MG/DL Creatinine 0.62 MG/DL Random Glucose 97 MG/DL Calcium Level 8.4 MG/DL Magnesium Level 1.8 MG/DL Sodium Level 137 MEQ/L Potassium Level 2.7 MEQ/L Chloride Level 99 MEQ/L Carbon Dioxide Level 30.8 MEQ/L Anion Gap 7 MEQ/L Estimat Glomerular Filtration Rate 135 ML/MIN Urine Opiates Screen NEG Acetaminophen Level LESS THAN 2.0 MCG/ML Urine Barbiturates Screen NEG Urine Amphetamines Screen NEG Urine Benzodiazepines Screen NEG Urine Cocaine Screen NEG Urine Cannabinoids Screen NEG Ethyl Alcohol Level 384 MG/DL Ammonia 29 MCMOL/L [facility] Supervised Visit with MICKI: No Diagnosis Primary Impression: Alcohol intoxication Qualified Codes: F10.920 - Alcohol use, unspecified with intoxication, uncomplicated Additional Impressions: Conjunctivitis Qualified Codes: H10.9 - Unspecified conjunctivitis Hypokalemia Referrals: [facility] 1 day Patient Instructions: General Instructions Additional Instruction: Increase fluid hydration Discontinue alcohol use follow-up with [facility] for detox programs Return to the emergency department for any concerns or change in condition Add potassium containing food and beverages to dietary intake Scripts Erythromycin Opth Oint (Erythromycin Opth Oint) 5 Mg/Gm Oint 1 APPLIC RIGHT EYE QID for Infection, #1 TUBE 0 Refills Prov: Maggie Arce MD 03/08/18 Disposition: 01 DISCHARGE HOME Condition: Stable Susan Oglesby MD March 08, 2018 07:55
--- NOTE | 2018-03-08 16:11 | RADRPT ---
EXAM DATE/TIME: 03/08/2018 01:52 [facility] COMPARISON: No previous studies available for comparison. INDICATIONS : Trauma. Fall. ETOH. RADIATION DOSE: 57.94 CTDIvol (mGy) MEDICAL HISTORY : Unable to obtain. SURGICAL HISTORY : Fusion, cervical. ENCOUNTER: Initial ACUITY: 1 day PAIN SCALE: Non-responsive LOCATION: cranial TECHNIQUE: Multiple contiguous axial images were obtained of the head. Using automated exposure control and adj ustment of the mA and/or kV according to patient size, radiation dose was kept as low as reasonably a chievable to obtain optimal diagnostic quality images. DICOM format image data is available electro nically for review and comparison. FINDINGS: CEREBRUM: The ventricles are normal for age. No evidence of midline shift, mass lesion, hemorrhage or acute in farction. No extra-axial fluid collections are seen. POSTERIOR FOSSA: The cerebellum and brainstem are intact. The 4th ventricle is midline. The cerebellopontine angle i s unremarkable. EXTRACRANIAL: The visualized portion of the orbits is intact. SKULL: The calvaria is intact. No evidence of skull fracture. CONCLUSION: 1. No acute intracranial abnormalities. Junior Torres MD on March 08, 2018 at 2:16 Board Certified Radiologist. This report was verified electronically.
--- NOTE | 2018-03-08 16:13 | RADRPT ---
EXAM DATE/TIME: 03/08/2018 01:52 [place] COMPARISON: No previous studies available for comparison. INDICATIONS : Trauma. Fall. ETOH. RADIATION DOSE: 25.99 CTDIvol (mGy) MEDICAL HISTORY : Unable to obtain. SURGICAL HISTORY : Fusion, cervical. ENCOUNTER: Initial ACUITY: 1 day PAIN SCALE: Non-responsive LOCATION: neck TECHNIQUE: Volumetric scanning of the cervical spine was performed. Multiplanar reconstructions in the sagittal, coronal and oblique axial planes were performed. Using automated exposure control and adjustment o f the mA and/or kV according to patient size, radiation dose was kept as low as reasonably achievable to obtain optimal diagnostic quality images. DICOM format image data is available electronically f or review and comparison. FINDINGS: Postoperative fusion across C5-6-7. No acute fracture or spondylolisthesis. Moderate degenerative jonathan nges at C3-4-5 with mild lateral recess encroachment. Moderate facet arthropathy. CONCLUSION: 1. Moderate degenerative change. No acute bony abnormalities. Junior Torres MD on March 08, 2018 at 2:21 Board Certified Radiologist. This report was verified electronically.
--- NOTE | 2018-03-08 20:49 | EKG ---
Date Performed: 03/08/2018 Time Performed: 02:53:52 PTAGE: 52 years EKG: SINUS TACHYCARDIA RIGHT BUNDLE BRANCH BLOCK SEPTAL MYOCARDIAL INFARCTION ABNORMAL ECG PREVIOUS TRACING : 02/05/2018 17.50 Since the previous tracing, no significant change noted DOCTOR: Az Humphreys Interpretating Date/Time 03/08/2018 20:47:29
== END 2018-03-08 10:09 | disposition home or self-care (01) ==
LOC: PHED 00:31
DX: F10.129 Alcohol abuse with intoxication, unspecified (principal); E87.6 Hypokalemia; H10.9 Unspecified conjunctivitis; K21.9 Gastro-esophageal reflux disease without esophagitis; R94.31 Abnormal electrocardiogram [ECG] [EKG]
CPT/HCPCS: 70450; 71045; 72125; 72170; 80048; 80307; 81001; 82140; 83735; 85025; 85610; 85730; 93005; 96361; 96365; 96367; 99285; J3480; J7030; J7040